=== PATIENT | male | born 1940 | race Caucasian/White ===

== ENCOUNTER 2022-11-07 09:19 | Emergency (ER) | payer MEDICARE, BC, SELFPAY ==
[2022-11-07 09:23] VITALS: BP 129/73; PULSE 64; RESP 20; TEMP 36.4; O2SAT 98; BMI 23.0
--- NOTE | 2022-11-07 09:48 | ED.GENADULT ---
HPI - General Adult General Time Seen by Provider: 09:48 Date Seen: 11/07/22 Chief complaint: Extremity Pain/Injury, Lower Stated complaint: gout / swelling Time Seen by Provider: 11/07/22 09:43 Source: patient, RN notes reviewed and old records reviewed Mode of arrival: ambulatory Limitations: no limitations History of Present Illness HPI narrative: Patient is an 82-year-old male coming in with complaint of ongoing left toe pain. His pain is actually at the left 1st metatarsophalangeal joint. He was in the ER on October 25, no reviewed. Uric acid was elevated, white count was normal, no fever. Diagnosis of probable gout and patient was given dexamethasone 10 mg orally here and then a prescription for Medrol Dosepak. He states he did improve. Waited about 3-4 days, followed up with his primary care provider Dr. Roberts. This joint was swelling again and more painful. No fevers, no trauma. He was started on prednisone, it is been about 3-4 days and there is no improvement, although he does tell me right now it is not feeling as bad. It is still hurting to walk. The swelling is down at this time. Related Data Home Medications Medication Instructions Recorded Confirmed betamethasone valerate 0.1 % 0.1 applic topical .Bid Mon, Wed, 12/13/21 11/07/22 topical cream Fri epinephrine 0.3 mg/0.3 mL 0.3 ml IM ONCE 12/13/21 11/07/22 injection, auto-injector rivaroxaban 20 mg tablet 20 mg PO DAILY 12/13/21 11/07/22 metoprolol succinate 25 mg 25 mg PO DAILY 11/04/22 11/07/22 tablet,extended release 24 hr Previous Rx's Medication Instructions Recorded prednisone 20 mg tablet 10 - 40 mg (0.5 - 2 x 20 mg) PO 11/04/22 QDAY #14 tabs Allergies Allergy/AdvReac Type Severity Reaction Status Date / Time venom-honey bee Allergy Mild Unknown Verified 11/04/22 10:08 HYMENOPTERA ALLERGENIC Allergy Unknown Unknown Uncoded 11/04/22 10:08 EXTRACT Review of Systems Narrative: As per HPI PFSH PFS Medical History Cerumen debris on tympanic membrane of right ear ?H61.21 - Impacted cerumen, right ear (ICD-10) Surgical History 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 - Presence of right artificial hip joint (ICD-10) History of right cataract extraction ?Z98.41 - Cataract extraction status, right eye (ICD-10) History of left cataract extraction ?Z98.42 - Cataract extraction status, left eye (ICD-10) History of hernia repair ?Z98.890 - Other specified postprocedural states (ICD-10) ?Z87.19 - Personal history of other diseases of the digestive system (ICD-10) History of hemorrhoidectomy ?Z98.890 - Other specified postprocedural states (ICD-10) Family History (Updated 12/06/21 @ 11:52 by Radha Caro) Father Heart disease Other Diabetes Social History Narrative: Consumes alcohol occasionally Does not use illicit drugs Nonsmoker Smoking Status: Former smoker Do you use any of these nicotine containing products: None Second hand tobacco smoke exposure: No How often do you have a drink containing alcohol: 2-3 times a week How many standard drinks containing alcohol do you have on a typical day: 1 or 2 How often do you have six or more drinks on one occasion: Never AUDIT-C Alcohol total score: 3 Non-prescribed substance use: denies use Exam Const: Vital Signs, click to edit/add: Vital Signs - 24 hr 11/07/22 09:23 Temperature 97.5 F L Pulse Rate [Pulse Oximeter] 64 Respiratory Rate 20 Blood Pressure [Ri ght Upper Arm] 129/73 Pulse Oximetry 98 Oxygen Delivery Me thod Room Air 82-year-old male that is alert interactive no apparent distress both feet are visualized. Skin is normal, no significant erythema. Specifically, he has no significant swelling or erythema or effusion over the left 1st metatarsophalangeal joint. Is not painful today. The joint itself does seem to be a little thicker, possibly arthritic in comparison to the right. He has not had x-rays done yet. Neurovascular is intact. Documenting provider has reviewed patient's vital signs: yes Course Course Hospital Course: Overall, his foot clinically looks quite stable as far as possible gouty arthritis. Do wonder if there is possibly underlying concomitant osteoarthritis. I do think we should proceed with imaging of this foot, he does agree. Reevaluation(s) Time of Reevaluation #1: 10:50 Reevaluation #1: Have reviewed with patient that there is significant arthritis of this joint. He most certainly could have had a gouty flare on top of osteoarthritis. It is possible that this was an osteoarthritis flare as well. It is impossible to say without having had fluid demonstrating crystals from the acute flare. Nonetheless, steroids make most people with joint arthritis feel better. I do think he can complete the current prednisone. He is on Xarelto which certainly limits the ability for NSAIDs. He can follow up with his primary care provider to discuss further treatment options for osteoarthritis of this joint. I would recommend a trial of baseline Tylenol to see if this does help him. He can see if he needs 1 dose a day but may end up needing up to 3 doses a day. Vital Signs Vital signs: Initial Vital Signs Temperature 97.5 F L 11/07/22 09:23 Temperature Source Temporal Artery Scan 11/07/22 09:23 Pulse Rate 64 11/07/22 09:23 Respiratory Rate 20 11/07/22 09:23 Blood Pressure 129/73 11/07/22 09:23 Blood Pressure Mean 91 11/07/22 09:23 Blood Pressure Position Sitting 11/07/22 09:23 Pulse Oximetry 98 11/07/22 09:23 Oxygen Delivery Method Room Air 11/07/22 09:23 Vital Signs Temperature 97.5 F L 11/07/22 09:23 Pulse Rate 64 11/07/22 09:23 Respiratory Rate 20 11/07/22 09:23 Blood Pressure 129/73 11/07/22 09:23 Pulse Oximetry 98 11/07/22 09:23 Oxygen Delivery Method Room Air 11/07/22 09:23 Temperature 97.5 F L 11/07/22 09:23 Pulse Rate 64 11/07/22 09:23 Respiratory Rate 20 11/07/22 09:23 Blood Pressure 129/73 11/07/22 09:23 Pulse Oximetry 98 11/07/22 09:23 Oxygen Delivery Method Room Air 11/07/22 09:23 Medical Decision Making Imaging Data XR left foot: Attestation: I have reviewed the pertinent imaging results. My impression: I see definite joint space narrowing of his 1st metatarsophalangeal joint. Await Radiology over-read. Radiologist's impression: Patient: CHRISTIAN CYR Facility:?[facility] Patient ID:?[id number] Site Patient ID:?[id number]. Site :?[id number] Study:?XRay Extremity Left FOOT 3V-11/07/2022 10:14:26 AM Ordering Physician:Marino Gonzales Final Report: INDICATION: Pain of the left 1st MTP joint. TECHNIQUE: Three views of the left foot. FINDINGS: Marked narrowing of the left 1st MTP joint with minor spurring and sclerosis. Minor soft tissue swelling. No soft tissue calcifications. No definite erosive arthritis. The examination is otherwise negative. IMPRESSION: Degenerative change left 1st MTP joint with soft tissue swelling. No erosive arthritis. 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 Can use 1000 mg up to 3 times a day as needed. Please get scheduled in clinic with Dr. Roberts for follow-up visit and further planning of management of osteoarthritis of this toe. It is still certainly is possible that there was concomitant gout and is impossible to tell you if there was at this time. Do recommend completing the prednisone that he gave you. No that arthritis in this area of the toe will hurt with walking and potentially even standing. Hopefully the Tylenol will help alleviate some of this discomfort as it is important for you to be able to continue to be active. Activity Level: Activity as Tolerated Prescriptions: No Action betamethasone valerate 0.1 % cream 0.1 applic topical .Bid Mon, Wed, Fri epinephrine 0.3 mg/0.3 mL auto-injector 0.3 ml IM ONCE rivaroxaban 20 mg tablet 20 mg PO DAILY Rx Instructions: WITH MEAL metoprolol succinate 25 mg tablet extended release 24 hr 25 mg PO DAILY prednisone 20 mg tablet 10 - 40 mg PO QDAY Qty: 14 0RF Rx Instructions: 2 QD x 4 days, 1 QD x 4 days, 1/2 QD x 4 days Follow Up/Referrals: Yolanda Garcia PA-C [Primary Care Provider] - Stand Alone Forms: [email or web address]) Info Instructions
--- NOTE | 2022-11-07 09:52 | CRLHL7_ITS ---
For Patients: As a result of the Cures Act, medical imaging exams and procedure reports are released immediately into your electronic medical record. You may view this report before your referring provider. If you have questions, please contact your health care provider. INDICATION: Pain of the left 1st MTP joint. TECHNIQUE: Three views of the left foot. FINDINGS: Marked narrowing of the left 1st MTP joint with minor spurring and sclerosis. Minor soft tissue swelling. No soft tissue calcifications. No definite erosive arthritis. The examination is otherwise negative. IMPRESSION: Degenerative change left 1st MTP joint with soft tissue swelling. No erosive arthritis. Dictated by Vamshi Luna MD @ 11/07/2022 10:26:43 AM (Electronically Signed)
== END 2022-11-07 11:02 | disposition home or self-care (01) ==
PROVIDERS: Emergency Provider Family Medicine; PCP Physician Assistant Medical
DX: M19.072 Primary osteoarthritis, left ankle and foot (principal)
CPT/HCPCS: 73630; 99282; 99283

== ENCOUNTER 2023-07-27 10:23 | Emergency (ER) | payer MEDICARE, BC, SELFPAY ==
[2023-07-27 10:27] VITALS: BP 169/84; PULSE 55; RESP 14; TEMP 35.7; O2SAT 99; BMI 23.0
--- NOTE | 2023-07-27 10:40 | ED.GENADULT ---
HPI - General Adult General Chief complaint: Ear/Nose/Throat Problem Stated complaint: wash wax out of ears? Time Seen by Provider: 07/27/23 10:31 History of Present Illness HPI narrative: Pt is here to have ear wax removed/washed in R ear due to it being plugged. Tried to go to clinic, but states no one had time to wash ear wax out. Has hx of ear wax removal from this ear. Denies pain 83-year-old man presenting to the emergency department with concern of plugged ears. Particularly the right ear. Has had ears irrigated in the past and is concerned that this might be the issue again. Was not able to find appointment or someone to help him at the clinic. Is not having any pain. No unusual drainage. No fever. No trauma. Related Data Home Medications Medication Instructions Recorded Confirmed epinephrine 0.3 mg/0.3 mL 0.3 ml IM ONCE 12/13/21 02/19/23 injection, auto-injector rivaroxaban 20 mg tablet 20 mg PO DAILY 12/13/21 02/19/23 metoprolol succinate 25 mg 25 mg PO DAILY 11/04/22 02/19/23 tablet,extended release 24 hr Previous Rx's Medication Instructions Recorded fluorouracil 5 % topical cream 1 applic topical .1DW #40 grams 01/08/23 (Efudex) betamethasone valerate 0.1 % 0.1 applic topical .Bid Mon, Thu, 02/19/23 topical cream Fri #45 grams Allergies Allergy/AdvReac Type Severity Reaction Status Date / Time venom-honey bee Allergy Mild Unknown Verified 02/19/23 09:17 HYMENOPTERA ALLERGENIC Allergy Unknown Unknown Uncoded 02/19/23 09:17 EXTRACT Review of Systems Status of ROS: Reports: 6 or more systems reviewed and unremarkable except as noted in History and below [facility] Medical History Gout ?M10.9 - Gout, unspecified (ICD-10) Retinal detachment ?H33.20 - Serous retinal detachment, unspecified eye (ICD-10) Gastroesophageal reflux disease ?K21.9 - Gastro-esophageal reflux disease without esophagitis (ICD-10) Diverticulitis ?K57.92 - Diverticulitis of intestine, part unspecified, without perforation or abscess without bleeding (ICD-10) Atrial fibrillation ?I48.91 - Unspecified atrial fibrillation (ICD-10) Surgical History 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 - Presence of right artificial hip joint (ICD-10) History of right cataract extraction ?Z98.41 - Cataract extraction status, right eye (ICD-10) History of left cataract extraction ?Z98.42 - Cataract extraction status, left eye (ICD-10) History of hernia repair ?Z98.890 - Other specified postprocedural states (ICD-10) ?Z87.19 - Personal history of other diseases of the digestive system (ICD-10) History of hemorrhoidectomy ?Z98.890 - Other specified postprocedural states (ICD-10) Family History Father Heart disease Other Diabetes Social History Narrative: Consumes alcohol occasionally Does not use illicit drugs Nonsmoker Smoking Status: Former smoker Do you use any of these nicotine containing products: None Second hand tobacco smoke exposure: No How often do you have a drink containing alcohol: 2-3 times a week How many standard drinks containing alcohol do you have on a typical day: 1 or 2 How often do you have six or more drinks on one occasion: Never AUDIT-C Alcohol total score: 3 Non-prescribed substance use: denies use Exam Narrative: Exam Narrative: Pleasant. NAD. Breathing easily. Neck is supple without lymphadenopathy. No swelling around the face. Oropharynx is WNL dentition in good repair. Left ear canal with minimal cerumen staining. Right ear canal with near complete occlusion with small to moderate amount of dried cerumen. TMs bilaterally are noted to be clear on reexamination. No nasopharyngeal congestion Const: Vital Signs, click to edit/add: Vital Signs - 24 hr 07/27/23 10:27 Temperature 96.2 F L Pulse Rate [Pulse Oximeter] 55 L Respiratory Rate 14 Blood Pressure [Ri ght Upper Arm] 169/84 H Pulse Oximetry 99 Oxygen Delivery Me thod Room Air Documenting provider has reviewed patient's vital signs: yes Course Vital Signs Vital signs: Initial Vital Signs Temperature 96.2 F L 07/27/23 10:27 Temperature Source Temporal Artery Scan 07/27/23 10:27 Pulse Rate 55 L 07/27/23 10:27 Pulse Rhythm Regular 07/27/23 10:27 Respiratory Rate 14 07/27/23 10:27 Blood Pressure 169/84 H 07/27/23 10:27 Blood Pressure Mean 112 H 07/27/23 10:27 Blood Pressure Position Sitting 07/27/23 10:27 Pulse Oximetry 99 07/27/23 10:27 Oxygen Delivery Method Room Air 07/27/23 10:27 Vital Signs Temperature 96.2 F L 07/27/23 10:27 Pulse Rate 55 L 07/27/23 10:27 Respiratory Rate 14 07/27/23 10:27 Blood Pressure 169/84 H 07/27/23 10:27 Pulse Oximetry 99 07/27/23 10:27 Oxygen Delivery Method Room Air 07/27/23 10:27 Temperature 96.2 F L 07/27/23 10:27 Pulse Rate 55 L 07/27/23 10:27 Respiratory Rate 14 07/27/23 10:27 Blood Pressure 169/84 H 07/27/23 10:27 Pulse Oximetry 99 07/27/23 10:27 Oxygen Delivery Method Room Air 07/27/23 10:27 Medical Decision Making MDM Narrative Medical decision making narrative: We discussed methods of removal. He would like what ever might be a little quicker. I think I can do pretty good job without irrigation here today just using ear curette. Using ear curette managed to remove the cerumen occluding the right ear canal from 4 o'clock to 1 o'clock position. He noted immediate improvement in his sensation of hearing and not feeling plugged. No inflammatory change to the ear canal. He asked me also then to remove some what was some trace amount in the left side. No inflammatory changes in the canal. TM normal. Mr. Rhoades was wondering how he can treat this in the future. See patient discharge plan for further discussion Discharge Plan Discharge Clinical Impression: Excessive cerumen in right ear canal Patient Disposition: Home, Self-Care Condition: Improved Additional Instructions: You might place Debrox or mineral oil into your ear once or twice a month. There is nothing left to clear out at this point. Prescriptions: No Action epinephrine 0.3 mg/0.3 mL auto-injector 0.3 ml IM ONCE rivaroxaban 20 mg tablet 20 mg PO DAILY Rx Instructions: WITH MEAL metoprolol succinate 25 mg tablet extended release 24 hr 25 mg PO DAILY betamethasone valerate 0.1 % cream 0.1 applic topical .Bid Mon, Wed, Fri Qty: 45 0RF fluorouracil [Efudex] 5 % cream 1 applic topical .1DW Qty: 40 0RF Rx Instructions: Apply to affected skin one day per week. Follow Up/Referrals: Allan Roberts MD [Primary Care Provider] - Stand Alone Forms: [facility] Info Instructions Procedures Ear Wax Removal Both Ears: Results: Re-examined: cerumen removed completely TM Examination: TM(s) intact, normal appearance Ear Canal Exam: atraumatic Patient Tolerated Procedure: well Technique: ear canal curetted
== END 2023-07-27 11:14 | disposition home or self-care (01) ==
PROVIDERS: Emergency Provider Family Medicine; PCP Family Medicine
DX: H61.21 Impacted cerumen, right ear (principal)
CPT/HCPCS: 69209; 99283; 99284

== ENCOUNTER 2023-08-18 10:31 | Outpatient (REF) | payer MEDICARE, BC, SELFPAY ==
[2023-08-18 10:50] LABS: Chloride* 102 mmol/L (96-114); Potassium* 4.3 mmol/L (3.6-5.1); Sodium* 139 mmol/L (135-149)
[2023-08-18 10:53] LABS: Anion Gap 6 mEq/L (7-15); Blood Urea Nitrogen* 21 mg/dL (7-30); Carbon Dioxide* 31 mmol/L (20-32); Creatinine* 1.1 mg/dL (0.5-1.5); Estimated Glomerular Filt Rate 66 ml/min
[2023-08-18 10:54] LABS: Calcium* 9.4 mg/dL (8.4-10.6); Glucose* 99 mg/dL (60-115)
== END 2023-08-18 10:32 | disposition home or self-care (01) ==
LOC: NPINS 10:31
PROVIDERS: PCP Family Medicine; Visit Provider Internal Medicine
DX: I10 Essential (primary) hypertension (principal)
CPT/HCPCS: 80048

== ENCOUNTER 2023-09-28 07:10 | Emergency (ER) | payer MEDICARE, BC, SELFPAY ==
[2023-09-28 07:33] VITALS: BP 147/97; PULSE 87; RESP 16; TEMP 36.7; O2SAT 97; BMI 23.7
--- NOTE | 2023-09-28 07:45 | ED_ITS ---
HPI - General Adult General Time Seen by Provider: 07:45 Date Seen: 09/28/23 Chief complaint: Hypertension Stated complaint: elevated blood pressure Source: patient, RN notes reviewed and old records reviewed Mode of arrival: ambulatory Limitations: no limitations History of Present Illness HPI narrative: 83-year-old male with history of high blood pressure, atrial fibrillation currently anticoagulated on Xarelto, also takes metoprolol who presents after checking his blood pressure at the pharmacy today and found to be with systolic 180. Patient has no chest pain, shortness of breath or neurologic symptoms. Took his blood pressure medication last night. Related Data Home Medications Medication Instructions Recorded Confirmed epinephrine 0.3 mg/0.3 mL 0.3 ml IM ONCE 12/13/21 08/20/23 injection, auto-injector rivaroxaban 20 mg tablet 20 mg PO DAILY 12/13/21 08/20/23 metoprolol succinate 25 mg 25 mg PO DAILY 11/04/22 08/20/23 tablet,extended release 24 hr Previous Rx's Medication Instructions Recorded fluorouracil 5 % topical cream 1 applic topical .1DW #40 grams 01/08/23 (Efudex) betamethasone valerate 0.1 % 0.1 applic topical .Bid Mon, Wed, 08/27/23 topical cream Fri #45 grams Allergies Allergy/AdvReac Type Severity Reaction Status Date / Time venom-honey bee Allergy Mild Unknown Verified 08/20/23 09:43 HYMENOPTERA ALLERGENIC Allergy Unknown Unknown Uncoded 08/20/23 09:43 EXTRACT PFSH PFSH Medical History Gout ?M10.9 - Gout, unspecified (ICD-10) Retinal detachment ?H33.20 - Serous retinal detachment, unspecified eye (ICD-10) Gastroesophageal reflux disease ?K21.9 - Gastro-esophageal reflux disease without esophagitis (ICD-10) Diverticulitis ?K57.92 - Diverticulitis of intestine, part unspecified, without perforation or abscess without bleeding (ICD-10) Atrial fibrillation ?I48.91 - Unspecified atrial fibrillation (ICD-10) Surgical History 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 - Presence of right artificial hip joint (ICD-10) History of right cataract extraction ?Z98.41 - Cataract extraction status, right eye (ICD-10) History of left cataract extraction ?Z98.42 - Cataract extraction status, left eye (ICD-10) History of hernia repair ?Z98.890 - Other specified postprocedural states (ICD-10) ?Z87.19 - Personal history of other diseases of the digestive system (ICD-10) History of hemorrhoidectomy ?Z98.890 - Other specified postprocedural states (ICD-10) Family History Father Heart disease Other Diabetes Social History Narrative: Consumes alcohol occasionally Does not use illicit drugs Nonsmoker Smoking Status: Former smoker Do you use any of these nicotine containing products: None Second hand tobacco smoke exposure: No How often do you have a drink containing alcohol: 2-3 times a week How many standard drinks containing alcohol do you have on a typical day: 1 or 2 How often do you have six or more drinks on one occasion: Never AUDIT-C Alcohol total score: 3 Non-prescribed substance use: denies use Exam Narrative: Exam Narrative: General: Well-developed and well-nourished, no acute distress Head: Atraumatic and normocephalic Eyes: Pupils are equal reactive, extraocular motions intact, conjunctiva clear ENT: External nose and ears are normal, posterior pharynx without erythema or exudate Neck: No midline cervical tenderness, full spontaneous range of motion the neck, trachea midline, no adenopathy Heart: Regular rate and rhythm no murmurs or thrills Lungs: Clear to auscultation bilaterally without wheezes or crackles Abdomen: Soft, nontender, nondistended with active bowel sounds Musculoskeletal: No tenderness, deformity, or edema Neurologic: Awake, alert, and oriented x3, no gross focal neurologic deficits, cranial nerves intact as tested Psych: Mood and affect are appropriate Skin: No rashes Const: Vital Signs, click to edit/add: Vital Signs - 24 hr 09/28/23 07:33 Temperature 98.0 F Pulse Rate [Left P ulse Oximeter] 87 Respiratory Rate 16 Blood Pressure [Ri ght Upper Arm] 147/97 H Pulse Oximetry 97 Oxygen Delivery Me thod Room Air Course Course ED Course: Patient seen and examined, presents today with elevated blood pressure reading at the pharmacy. On exam here, blood pressure is reasonably controlled with systolics in the 130-1 40s. Patient is asymptomatic, can follow up with primary care as an outpatient. Vital Signs Vital signs: Initial Vital Signs Temperature 98.0 F 09/28/23 07:33 Temperature Source Temporal Artery Scan 09/28/23 07:33 Pulse Rate 87 09/28/23 07:33 Pulse Rhythm Regular 09/28/23 07:33 Pulse Strength 3+ Normal 09/28/23 07:33 Respiratory Rate 16 09/28/23 07:33 Blood Pressure 147/97 H 09/28/23 07:33 Blood Pressure Mean 113 H 09/28/23 07:33 Blood Pressure Position Sitting 09/28/23 07:33 Pulse Oximetry 97 09/28/23 07:33 Oxygen Delivery Method Room Air 09/28/23 07:33 Vital Signs Temperature 98.0 F 09/28/23 07:33 Pulse Rate 87 09/28/23 07:33 Respiratory Rate 16 09/28/23 07:33 Blood Pressure 147/97 H 09/28/23 07:33 Pulse Oximetry 97 09/28/23 07:33 Oxygen Delivery Method Room Air 09/28/23 07:33 Temperature 98.0 F 09/28/23 07:33 Pulse Rate 87 09/28/23 07:33 Respiratory Rate 16 09/28/23 07:33 Blood Pressure 147/97 H 09/28/23 07:33 Pulse Oximetry 97 09/28/23 07:33 Oxygen Delivery Method Room Air 09/28/23 07:33 Discharge Plan Discharge Clinical Impression: Hypertension Patient Disposition: Home, Self-Care Condition: Stable Instructions: Chronic Hypertension (DC) Additional Instructions: Continue your current medication Follow-up with primary care Activity Level: No Restrictions Discharge Diet: Heart Healthy (2 gm sodium, low fat) Prescriptions: No Action epinephrine 0.3 mg/0.3 mL auto-injector 0.3 ml IM ONCE rivaroxaban 20 mg tablet 20 mg PO DAILY Rx Instructions: WITH MEAL metoprolol succinate 25 mg tablet extended release 24 hr 25 mg PO DAILY fluorouracil [Efudex] 5 % cream 1 applic topical .1DW Qty: 40 0RF Rx Instructions: Apply to affected skin one day per week. betamethasone valerate 0.1 % cream 0.1 applic topical .Bid Mon, Wed, Fri Qty: 45 0RF Follow Up/Referrals: Allan Roberts MD [Primary Care Provider] - Stand Alone Forms: [employer] Info Instructions
--- OUTSIDE RECORDS SUMMARY | 2023-09-28 07:57 | XMS_ITS | Clinical Summary ---
Author Name Unknown Organization [facility] Address [address] [place] [id number] Care Team Providers Care Box Blank Machine Operator Name Role Phone William Samayoa MD Primary Care Provider + Social History Tobacco Use Types Packs/Day Years Used Date Smoking Tobacco: Never Assessed Sex and Gender Information Value Date Recorded Sex Assigned at Not on file Gender Identity Not on file Sexual Orientation Not on file Plan of Treatment Not on file Care Teams Box Blank Machine Operator Relationship Specialty Start Date End Date William Samayoa MD PCP - General 06/10/17
--- OUTSIDE RECORDS SUMMARY | 2023-09-28 07:57 | XMS_ITS | Referral Summary ---
Author Name Unknown Organization [facility] Address [address] [place] [id number] Care Team Providers Care Enrichment Assistant Name Role Phone William Samayoa MD Primary Care Provider + Social History Tobacco Use Types Packs/Day Years Used Date Smoking Tobacco: Never Assessed Sex and Gender Information Value Date Recorded Sex Assigned at Not on file Gender Identity Not on file Sexual Orientation Not on file Plan of Treatment Not on file Care Teams Enrichment Assistant Relationship Specialty Start Date End Date William Samayoa MD PCP - General 06/10/17
--- OUTSIDE RECORDS SUMMARY | 2023-09-28 07:57 | XMS_ITS | Clinical Summary ---
Author Name Unknown Organization [facility] & [facility] Address [address] [address] Care Team Providers Care Wood Heel Attacher Name Role Phone Allan Rhoades MD Primary Care Provider Allergies Active Allergy Reactions Criticality Noted Date Comments Hymenoptera Allergenic Extract High 06/19/2008 bee sting -passed out /now has EPI pen Unlisted Allergen (Include Detail In Comments) 06/19/2008 seasonal Medications Medication Sig Dispensed Refills Start Date End Date Status EPIPEN 0.3 MG/0.3 ML (1:1,000) IM INJECTOR as directed Ac tive multivitamin (MVI) tablet Take 1 tablet by mouth once daily. 0 12/10/2018 Active vitamins A,C,R-clsc-uajwar (ICaps AREDS) 7,160-113-100 lmbm-ab-ndmd TbEC Take by mouth once daily. 0 12/11/2021 Active metoprolol succinate (TOPROL XL) 25 mg Sustained-Release tabletIndications:Chr onic atrial fibrillation (HC) Take 1 Tablet (25 mg) by mouth once daily. 90 Tablet 3 01/16/2023 Active rivaroxaban (Xarelto) 20 mg tabletIndications:Atr ial fibrillation, unspecified type (HC) Take 1 Tablet (20 mg) by mouth once daily with evening meal. 90 Tablet 3 01/16/2023 Active apixaban (Eliquis) 5 mg tabletIndications:Atr ial fibrillation, unspecified type (HC) Take 1 Tablet (5 mg) by mouth two times daily. 180 Tablet 3 08/10/2023 Active Encounters Date Type Department Care Team Description 08/19/[address] [place] [address] Garth Macdonald MD Questions 08/19/[address] [place] [address] Garth Macdonald MD Results (/) 08/18/2023 Orders Only [facility] [place] [address] [facility] [address] [place] [address] Harshad Leach 1 scan: (1-Ord) [facility] REPORT - 08/18/2023 07/27/2023 Telephone [facility] [address] [facility] [address] [place] [address] Garth Macdonald MD Medication Management (Xarelto Coverage) from Last 3 Months Social History Tobacco Use Types Packs/Day Years Used Date Smoking Tobacco: Never Smokeless Tobacco: Never Tobacco Cessation:Counseling Given: Yes Alcohol Use Standard Drinks/Week Comments Yes 0 (1 standard drink = 0.6 oz pur e alcohol) Social Connections Answer Date Recorded Frequency of Communication with Friends and Fami ly Not on file 05/18/2021 Financial Resource Strain Answer Date R ecorded Difficulty of Paying Living Expenses Not on file 05/18/2021 Difficulty of Paying Living Expenses Not on file 05/18/2021 Sex and Gender Information Value Date Recorded Sex Assigned at Not on file Gender Identity Not on file Sexual Orientation Not on file Obstetrics History Last Filed Vital Signs Vital Sign Reading Time Taken Comments Blood Pressure 118/72 12/13/2021 1:52 PM CDT Pulse 72 12/13/2021 1:52 PM CDT Temperature 35.9 ??C (96.6 ??F) 06/20/2008 1:05 PM CS T Respiratory Rate 14 12/13/2021 1:52 PM CDT Oxygen Saturation 99% 11/22/2019 9:45 AM CDT Inhaled Oxygen Concentration - - Weight 76.7 kg (169 lb) 12/13/2021 1:52 PM CDT Height 177.8 cm (5' 10) 06/19/2008 10:00 AM 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 SECURITY Body Mass Index - - Plan of Treatment Health Maintenance Due Date Last Done Comments Pneumococcal series for age 65+ (1 of 2 - PCV) 1945 Tdap 1950 Depression screening for age 12+ 1951 BMI (ht and wt on same day) for age 18+ 1957 Tetanus booster 1959 Zoster (shingles) series for age 50+ (1 of 2) 1989 Medicare Wellness for age 65+ 01/31/2004 COVID-19 vaccine series (3 - 2022- season) 2023 07/14/2020, 06/23/2020 Influenza for age 65+ 01/17/2024 Procedures Procedure Name Priority Date/Time Associated Diagnosis Comments BASIC METABOLIC PANEL Routine 08/18/2023 9:05 AM CDT HTN (hypertension) from Last 3 Months Results * (ABNORMAL) BASIC METABOLIC PANEL (08/18/2023 9:05 AM CDT) SODIUM 139 135 - 149 mmol/L [facility] POTASSIUM 4.3 3.6 - 5.1 mmol/L [facility] CHLORIDE 102 96 - 114 mmol/L [facility] CO2,TOTAL 31 20 - 32 mmol/L [facility] ANION GAP 6(A) 7 - 15 mEq/L [facility] GLUCOSE 99 60 - 115 mg/dL [facility] BUN 21 7 - 30 mg/dL [facility] CREATININE 1.10 0.50 - 1.50 mg/dL [facility] BUN/CREAT [facility] CALCIUM 9.4 8.4 - 10.6 mg/dL [facility] eGFR 66 mL/min [facility] Blood BLOOD SPECIMEN / Unknown 08/18/2023 9:05 AM CDT Garth Macdonald MD CHEMISTRY [facility] [address] [place] [address] from Last 3 Months Advance Directives * Full Code (Latest Code Status on File) Date Activated Date Inactivated Comments 06/20/2008 10:28 AM 06/20/2008 4:53 PM Care Teams Wood Heel Attacher Relationship Specialty Start Date End Date Allan Rhoades MD PCP - General 06/02/08
== END 2023-09-28 08:02 | disposition home or self-care (01) ==
PROVIDERS: Emergency Provider Family Medicine; PCP Family Medicine
DX: I10 Essential (primary) hypertension (principal)
CPT/HCPCS: 99282; 99283

== ENCOUNTER 2023-11-18 09:37 | Outpatient (CLI) | payer MEDICARE, BC, SELFPAY ==
--- OUTSIDE RECORDS SUMMARY | 2023-11-18 09:40 | XMS_ITS | Clinical Summary ---
Author Organization [employer] [facility] & [facility] Address [place], [place] [address] Care Team Providers Care Vice Investigator Name Role Phone Allan Rhoades MD Primary Care Provider [phone] Allergies Active Allergy Reactions Criticality Noted Date [...] mouth once daily. 0 12/10/2018 Active vitamins A,C,V-bhuo-sxbotr (ICaps AREDS) 7,160-113-100 bdub-cj-admh TbEC Take by mouth once daily. 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 [address] [place] [address] Health Maintenance Due Date Last Done Comments Pneumococcal series for age 65+ (1 of 2 - PCV) 1945 Tdap 1950 Depression screening for age 12+ 1951 BMI (ht and wt on same day) for age 18+ 1957 Tetanus booster 1959 Zoster (shingles) series for age 50+ (1 of 2) 1989 Medicare Wellness for age 65+ 01/31/2004 COVID-19 vaccine series (3 - 2022-24 season) 2023 07/14/2020, 06/23/2020 Influenza for age 65+ 01/17/2024 Advance Directives * Full Code (Latest Code Status on File) Date Activated Date Inactivated Comments 06/20/2008 10:28 AM 06/20/2008 4:53 PM Care Teams Vice Investigator Relationship Specialty Start Date End Date Allan Rhoades MD PCP - General 06/02/08
--- OUTSIDE RECORDS SUMMARY | 2023-11-18 09:40 | XMS_ITS | Clinical Summary ---
Author Organization [facility] Address [address] [place] [id number] Care Team Providers Care Client Development Director Name Role Phone William Samayoa MD Primary Care Provider + Social History Tobacco Use Types Packs/Day Years Used Date Smoking Tobacco: Never Assessed Sex and Gender Information Value Date Recorded Sex Assigned at Not on file Gender Identity Not on file Sexual Orientation Not on file Plan of Treatment Not on file Care Teams Client Development Director Relationship Specialty Start Date End Date William Samayoa MD PCP - General 06/10/17
--- OUTSIDE RECORDS SUMMARY | 2023-11-18 09:40 | XMS_ITS | Referral Summary ---
Author Organization [place] Address [address] [place] [address] Care Team Providers Care Liquor Merchant Name Role Phone William Samayoa MD Primary Care Provider + Social History Tobacco Use Types Packs/Day Years Used Date Smoking Tobacco: Never Assessed Sex and Gender Information Value Date Recorded Sex Assigned at Not on file Gender Identity Not on file Sexual Orientation Not on file Plan of Treatment Not on file Care Teams Liquor Merchant Relationship Specialty Start Date End Date William Samayoa MD PCP - General 06/10/17
== END 2023-11-18 09:38 | disposition home or self-care (01) ==
LOC: RAD 09:38
PROVIDERS: PCP Family Medicine; Visit Provider Internal Medicine
DX: I48.91 Unspecified atrial fibrillation (principal); I51.7 Cardiomegaly; I35.1 Nonrheumatic aortic (valve) insufficiency; I34.0 Nonrheumatic mitral (valve) insufficiency
CPT/HCPCS: 93306

== ENCOUNTER 2023-12-17 06:08 | Day surgery (SDC) | payer MEDICARE, BC, SELFPAY ==
[2023-12-17] VITALS (13 sets, daily range): BP systolic 147–169; BP diastolic 89–124; PULSE 55–71; RESP 12–16; TEMP 36.1–36.6; O2SAT 96–100; BMI 26.4
--- OUTSIDE RECORDS SUMMARY | 2023-12-17 06:11 | XMS_ITS | Clinical Summary ---
Author Organization [employer] [facility] & [facility] Address [place], [place] [address] Care Team Providers Care Automotive Service Cashier Name Role Phone Allan Rhoades MD Primary Care Provider [phone] Allergies Active Allergy Reactions Criticality Noted Date [...] mouth once daily. 0 12/10/2018 Active vitamins A,C,I-ujfm-cqlpcb (ICaps AREDS) 7,160-113-100 smwu-xk-bati TbEC Take by mouth once daily. 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 Body Mass Index - - Plan of Treatment Upcoming Encounters Date Type Department Care Team (Late st Contact Info) Description 12/17/2023 2:30 PM CDT Office Visit [facility] [address] [place] [address] Agueda Rivas MD [address] [facility] [address] [place] [address] Health Maintenance Due Date Last Done Comments Pneumococcal series for age 65+ (1 of 2 - PCV) 1945 Tdap 1950 Depression screening for age 12+ 1951 BMI (ht and wt on same day) for age 18+ 1957 Tetanus booster 1959 Zoster (shingles) series for age 50+ (1 of 2) 1989 Medicare Wellness for age 65+ 01/31/2004 COVID-19 vaccine series ( season) 2023 07/14/2020, 06/23/2020 Influenza for age 65+ 01/17/2024 Procedures Procedure Name Priority Date/Time Associated Diagnosis Comments ECHO TTE COMPLETE WO CONTRAST Routine 11/18/2023 10:43 AM CDT Unspecified atrial fibrillation (HC) from Last 3 Months Results * ECHO TTE COMPLETE WO CONTRAST (11/18/2023 10:43 AM CDT) AORTIC VALVE MEAN PG 3 mmHg EJECTION FRACTION 58 % PEAK TR VELOCITY 2.6 m/s LVEDD 3.8 cm Anatomical Region Laterality Modality Ultrasound 11/18/2023 10:0 7 AM CDT Narrative 11/18/2023 12:45 PM CDT ECHOCARDIOGRAM CHRISTIAN RHOADES ? Accession#: ?? [id number] : ?1940 83 years Study Date: ?? 11/18/2023 10:07:28 AM Gender: M ?BP: ? 150/88 mmHg Height: 178.00 cm ?BSA: ?1.93 m? ? ? Weight: 75.00 kg ? Tech: ? MJJ ? Referring MD: AGUEDA RIVAS Site: ? [facility] Reading Location: MOBILE-OP Patient Location: Outpatient. Procedure: 2D, Color Doppler and Spectral Doppler. Indication for study: Unspecified atrial fibrillation Cardiac Rhythm: Irregular.Study quality: Fair. Final Impressions: 1. Normal left ventricular size, moderately increased wall thickness, normal global systolic function, calculated EF of 58 %. 2. Moderate asymmetric septal hypertrophy without systolic anterior motion of the mitral valve or LVOT obstruction. 3. Right ventricular cavity size is normal, global systolic RV function is normal. 4. Moderately enlarged left atrium. 5. The aortic valve is trileaflet and sclerotic, no stenosis and mild regurgitation. 6. The mitral valve is sclerotic, mild mitral regurgitation. 7. Intermediate estimated RA (8 mmHg) and mildly elevated estimated RV systolic (35 mmHg) pressures. 8. No pericardial effusion. Comparison Compared to prior exam of 06/08/2017, there has been no significant change. Chamber Sizes and Function Normal left ventricular size, moderately increased wall thickness, normal global systolic function, calculated EF of 58 %. Left atrial size is moderately enlarged. Right ventricular cavity size is normal, global systolic RV function is normal. RV wall thickness is normal. The right atrium is moderately enlarged. Right atrial area is 28 cm? ? ?. The pulmonary artery is of normal size and origin. The sinus of Valsalva is normal sized. The ascending aorta is normal sized. Valves, RV Pressures and Diastolic Function The aortic valve is trileaflet and sclerotic, no stenosis and mild regurgitation. The mitral valve is sclerotic, mild mitral regurgitation. Mitral annular calcification is present. Indeterminate pattern of LV diastolic filling. The tricuspid valve is normal in structure. Tricuspid regurgitation is mild regurgitation. The tricuspid regurgitant velocity is 2.6 m/s, the estimated right ventricular systolic pressure is 27 mmHg plus right atrial pressure. The pulmonic valve is normal. Mild pulmonary regurgitation. Masses, Effusion, Shunts There is no pericardial effusion. The inferior vena cava is dilated, respiratory size variation greater than 50%. No left to right shunting was detected by limited color flow Doppler interrogation of the interatrial septum. MEASUREMENTS AND CALCULATIONS 2-D Measurements and LV Function: LVID (d) 3.8 cm Planimetered EF 58 % LVID (s) 3.0 cm LV FS% (2D) ? 21 % IVS (d) ??1.4 cm LVOT diameter ?? 2.0 cm LVPW (d) 1.0 cm HR ?59 bpm Ao Sinus 3.6 cm LA Vol index ?45 ml/m2 Asc Ao ?? 3.6 cm RA area ? 28 cm? ? ? LA ? 4.8 cm Diastology: Mitral ?Tissue Doppler ?Pulmonary veins E Peak 0.8 m/s ??e', Septum ? 0.05 m/s Pulm s ?20.4 cm/s DT ? 174 msec e', Lateral ?0.09 m/s Pulm d ?59.7 cm/s ?E/e' Average ?? 11.96 ?Pulm s/d ratio ??0.34 Aortic Valve: Vmax ? 1.2 m/s ??KOFFI (V) ?? 1.50 cm? AI P 1/2 975 msec VTI ?0.23 m ?? KOFFI (I) ?? 1.50 cm? ? ? LVOT V max 0.6 m/s ??Max PG ?6 mmHg LVOT VTI ?? 0.12 m ?? Mean PG ?? 3 mmHg SV ? 35 ml ?Dim Index 0.50 SV index ?? 18 ml/m? ? ? CO ?2.1 l/min ?CI ?1.1 l/min/m? ? ? Mitral Valve: MVA ? 4.4 cm? ? ? MV P 1/2 ??50 msec MV Mean G 1 mmHg MV VTI ?0.28 m Tricuspid Valve and estimated PA pressures: TR Vmax 2.6 m/s TAPSE 1.4 cm TR maxG 27 mmHg Pulmonic Valve: PIEDV 1.2 m/s . This study was interpreted by an [facility] accredited facility. CC: [facility] (med records) [facility]. ??Final ?? Procedure Note Harshad Thomas MD - 11/18/2023 ECHOCARDIOGRAM CHRISTIAN RHOADES : 1940 83 years Study Date: 11/18/2023 10:07:28 AM Gender: M BP: 150/88 mmHg Height: 178.00 cm BSA: 1.93 m? ? ? Weight: 75.00 kg Tech: GARO Referring MD: AGUEDA RIVAS Site: [facility] Reading Location: MOBILE-OP Patient Location: Outpatient. Procedure: 2D, Color Doppler and Spectral Doppler. Indication for study: Unspecified atrial fibrillation Cardiac Rhythm: Irregular.Study quality: Fair. Final Impressions: 1. Normal left ventricular size, moderately increased wall thickness,normal global systolic function, calculated EF of 58 %. 2. Moderate asymmetric septal hypertrophy without systolic anteriormotion of the mitral valve or LVOT obstruction. 3. Right ventricular cavity size is normal, global systolic RV functionis normal. 4. Moderately enlarged left atrium. 5. The aortic valve is trileaflet and sclerotic, no stenosis and mildregurgitation. 6. The mitral valve is sclerotic, mild mitral regurgitation. 7. Intermediate estimated RA (8 mmHg) and mildly elevated estimated RVsystolic (35 mmHg) pressures. 8. No pericardial effusion. Comparison Compared to prior exam of 06/08/2017, there has been no significantchange. Chamber Sizes and Function Normal left ventricular size, moderately increased wall thickness, normalglobal systolic function, calculated EF of 58 %. Left atrial size ismoderately enlarged. Right ventricular cavity size is normal, globalsystolic RV function is normal. RV wall thickness is normal. The rightatrium is moderately enlarged. Right atrial area is 28 cm? ? ?. The pulmonaryartery is of normal size and origin. The sinus of Valsalva is normalsized. The ascending aorta is normal sized. Valves, RV Pressures and Diastolic Function The aortic valve is trileaflet and sclerotic, no stenosis and mildregurgitation. The mitral valve is sclerotic, mild mitral regurgitation.Mitral annular calcification is present. Indeterminate pattern of LVdiastolic filling. The tricuspid valve is normal in structure. Tricuspidregurgitation is mild regurgitation. The tricuspid regurgitant velocity is2.6 m/s, the estimated right ventricular systolic pressure is 27 mmHg plusright atrial pressure. The pulmonic valve is normal. Mild pulmonaryregurgitation. Masses, Effusion, Shunts There is no pericardial effusion. The inferior vena cava is dilated,respiratory size variation greater than 50%. No left to right shunting wasdetected by limited color flow Doppler interrogation of the interatrialseptum. MEASUREMENTS AND CALCULATIONS 2-D Measurements and LV Function: LVID (d) 3.8 cm Planimetered EF 58 % LVID (s) 3.0 cm LV FS% (2D) 21 % IVS (d) 1.4 cm LVOT diameter 2.0 cm LVPW (d) 1.0 cm HR 59 bpm Ao Sinus 3.6 cm LA Vol index 45 ml/m2 Asc Ao 3.6 cm RA area 28 cm? ? ? LA 4.8 cm Diastology: Mitral Tissue Doppler Pulmonary veins E Peak 0.8 m/s e', Septum 0.05 m/s Pulm s 20.4 cm/s DT 174 msec e', Lateral 0.09 m/s Pulm d 59.7 cm/s E/e' Average 11.96 Pulm s/d ratio 0.34 Aortic Valve: Vmax 1.2 m/s KOFFI (V) 1.50 cm? ? ? AI P 1/2 975 msec VTI 0.23 m KOFFI (I) 1.50 cm? ? ? LVOT V max 0.6 m/s Max PG 6 mmHg LVOT VTI 0.12 m Mean PG 3 mmHg SV 35 ml Dim Index 0.50 SV index 18 ml/m? ? ? CO 2.1 l/min CI 1.1 l/min/m? ? ? Mitral Valve: MVA 4.4 cm? ? ? MV P 1/2 50 msec MV Mean G 1 mmHg MV VTI 0.28 m Tricuspid Valve and estimated PA pressures: TR Vmax 2.6 m/s TAPSE 1.4 cm TR maxG 27 mmHg Pulmonic Valve: PIEDV 1.2 m/s . This study was interpreted by an [facility] accredited facility. CC: [facility] (med records) [facility]. Final Agueda Rivas MD ECHO ORD from Last 3 Months Advance Directives * Full Code (Latest Code Status on File) Date Activated Date Inactivated Comments 06/20/2008 10:28 AM 06/20/2008 4:53 PM Care Teams Automotive Service Cashier Relationship Specialty Start Date End Date Allan Rhoades MD PCP - General 06/02/08
--- OUTSIDE RECORDS SUMMARY | 2023-12-17 06:11 | XMS_ITS | Referral Summary ---
Author Organization [place] Address [address] [place] [address] Care Team Providers Care Customer Care Professional Name Role Phone William Samayoa MD Primary Care Provider + Social History Tobacco Use Types Packs/Day Years Used Date Smoking Tobacco: Never Assessed Sex and Gender Information Value Date Recorded Sex Assigned at Not on file Gender Identity Not on file Sexual Orientation Not on file Plan of Treatment Not on file Care Teams Customer Care Professional Relationship Specialty Start Date End Date William Samayoa MD PCP - General 06/10/17
--- OUTSIDE RECORDS SUMMARY | 2023-12-17 06:11 | XMS_ITS | Clinical Summary ---
Author Organization [facility] Address [address] [place] [address] Care Team Providers Care Client Services Specialist Name Role Phone William Samayoa MD Primary Care Provider + Social History Tobacco Use Types Packs/Day Years Used Date Smoking Tobacco: Never Assessed Sex and Gender Information Value Date Recorded Sex Assigned at Not on file Gender Identity Not on file Sexual Orientation Not on file Plan of Treatment Not on file Care Teams Client Services Specialist Relationship Specialty Start Date End Date William Samayoa MD PCP - General 06/10/17
[2023-12-17] MEDS: SODIUM CHLORIDE 0.9 % (FLUSH) 10 ML SYRINGE IVF (06:35)
[2023-12-17] MEDS: LACTATED RINGERS 1000 ML 1,000 ML 100 ML IV (06:35)
--- NOTE | 2023-12-17 07:31 | W.PM.H&PU ---
History & Physical Update History & Physical Update H&P Reviewed and patient assessed: No changes noted H&P Updates: Patient has held his rivaroxaban for 3 days.
--- NOTE | 2023-12-17 07:31 | PM.GSPRC ---
Operative Note Date of procedure: 12/17/23 Pre-op diagnosis: Recurrent incarcerated left inguinal hernia Post-op diagnosis: Same Type of Procedure: Laparoscopic converted to open repair of recurrent incarcerated left inguinal hernia Indications: The patient is an 83-year-old male who several weeks ago noted a bulge in his groin. He had an non reducible mass. He had a history of a left inguinal hernia repair in the past. This was done open and mesh was used. We discussed laparoscopic repair and he was agreeable to proceed. Procedure Description: After discussing the risks and benefits of the procedure, the patient signed informed consent.? The operative site was marked and the patient was brought to the operating room and placed on the operating table in supine position.? Care was taken to pad the patient's pressure points.?? The patient was then intubated by anesthesia.?? The operative site was then prepped and draped in the usual sterile fashion.? A time-out was then performed. A curvilinear incision was made below the umbilicus. Dissection was carried down to subcutaneous tissue until the anterior rectus fascia was encountered. This was incised off the midline. The rectus muscle fibers were then retracted exposing the posterior fascia. A port with a dissecting balloon was then introduced into the pre-preperitoneal space. This was inflated under direct vision. The balloon was deflated, removed, and a 10 mm working port was placed. The space was insufflated and a 10 mm 30-degree scope was then advanced into the space. Two 5 mm ports were placed in the midline under direct vision. Dissection began on the left side. Link's ligament and the pubic bone were exposed medially. Following this, dissection was carried out laterally. There was fat densely adherent to the anterior abdominal wall in the location of a direct hernia. This was attempted to peel down. As I peeled it away I noted a mesh plug which was protruding quite far into the peritoneal cavity. The preperitoneal fat was densely adherent to this and bled easily as I tried to dissect it away. I decided to turned my attention to the indirect defect. The sac was attempted to be reduced. It was again densely adherent to the internal ring. The sac did tear. I was able to reduce a small amount of omentum. I continued to dissect the sac from around the internal ring opening and with pressure from the outside, continue to attempt to reduce the sac. However, the hernia would not reduce. The sac continued to tear. There did not appear to be bowel contained within the hernia. After continuing to attempt to reduce the hernia with external pressure as well as dissecting the sac and pulling it intra-abdominally, I decided to proceed with an open repair, because of inability to reduce the hernia and also because the mesh plug which was located medially would have interfered with the mesh patch laying flat along the anterior pelvic wall. The abdomen was desufflated and an incision was made over the left groin. This was done through the patient's prior scar. Dissection was carried down into the subcutaneous tissue using cautery. There was a fair amount of scar tissue here. The external oblique fascia was encountered. This was cleared off. The external ring was identified and the external oblique was incised using a knife. This was extended using the Metzenbaum scissors with care to dissect the underlying cord structures away from the fascia before cutting. This area was very scarred. The ileal inguinal nerve was not visualized here. The large hernia popped into view and was free from the cord structures. This was coming from the internal ring. The hernia sac was torn and it was found to contain omental fat. This was dissected through an ligated and divided. The omental fat was discarded. The cord structures were looped with a Brian drain and the base of the hernia sac was dissected away. This was then ligated and divided. The proximal and was reduced into the abdomen. The hernia opening was very small, only approximately the size of a fingertip. The inguinal canal floor was examined. Mesh was not visible, however it was palpable below the scar tissue in the inguinal floor. I was able to visualize the landmarks in this area for mesh placement after using cautery to carefully further dissect the external oblique from the underlying tissue which it was scarred down to. A piece of polypropylene mesh was obtained and cut to size. This was secured to the pubic tubercle using to 0 Prolene on a double-armed suture. The Prolene was run along the inguinal ligament inferiorly and along the transversalis fascia superiorly, securing the tails around the cord and re-creating the internal ring. The ring was secured slightly smaller than a fingertip, given that the patient had recurred through a small defect, but without strangulating the cord structures. The wound was examined for hemostasis which was found to be adequate. The external oblique fascia was then reapproximated with absorbable suture. I then re-insufflated the intra-abdominal space to ensure hemostasis. This appeared excellent. A mix of Exparel and 0.5% Marcaine were then injected into the preperitoneal space. This was also injected into the transversalis and subcutaneous around the left groin incision. Marcaine was injected into the umbilical port site. The left groin wound was then closed in layers including Hope's fascia and the dermis with absorbable suture. The skin was then closed with a running subcuticular suture. The port sites were also closed using absorbable Monocryl suture. Sterile dressings were applied. Instrument, sponge, and needle counts were correct at the end of the case. The patient was woken and taken to the PACU in stable condition. Instrument sponge and needle counts were correct at the end of the case. ? The patient tolerated the procedure well. Findings: Recurrent left inguinal hernia which was incarcerated. Unable to use laparoscopically; mesh plug noted from prior repair in the preperitoneal space. Implants: Bard soft mesh Anesthesia: GETA Surgeon: Dee Guaman MD Estimated blood loss (mL): 10 Condition: stable Disposition: PACU
[2023-12-17] MEDS: CEFAZOLIN 1 GM inj IVP (07:46)
[2023-12-17] MEDS: BUPIVACAINE 0.25% 30 ML INJECTION (08:13)
[2023-12-17] MEDS: BUPIVACAINE LIPOSOME 133 MG/10 ML INJ INFILTRATI (09:15)
--- NOTE | 2023-12-17 09:22 | SUR.OPER ---
PATIENT QUESTIONS ANSWERED SATISFACTORILY PREOPERATIVELY. PATIENT BROUGHT TO OR #1 PER CART. Patient positioned supine on OR #1 bed. The perioperative team supported arms bilaterally on arm boards for the intubation. Final approval of positioning by surgeon.
--- NOTE | 2023-12-17 09:26 | SUR.OPER ---
SURGEON DECLINES OFFER TO SEND EXCISED TISSUE TO PATHOLOGY.
--- NOTE | 2023-12-17 09:41 | P.ANES_ITS ---
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
== END 2023-12-17 11:37 | disposition home or self-care (01) ==
PROVIDERS: PCP Family Medicine; Visit Provider Surgery
PROC: (CPT 49650; principal; 2023-12-17 07:30)
DX: K40.31 Unilateral inguinal hernia, with obstruction, without gangrene, recurrent (principal); Z53.31 Laparoscopic surgical procedure converted to open procedure
CPT/HCPCS: 49521; 00830; 99100; C1781; C9290; J0665; J0690; J1100; J2405; J2704; J3010; J3490; J7120

== ENCOUNTER 2023-12-19 22:16 | Emergency (ER) | payer MEDICARE, BC, SELFPAY ==
[2023-12-19 22:27] VITALS: BP 151/102; PULSE 58; RESP 20; TEMP 36.7; O2SAT 98; BMI 23.7
--- NOTE | 2023-12-19 22:41 | ED_ITS ---
HPI - General Adult General Time Seen by Provider: 22:41 Date Seen: 12/19/23 Chief complaint: Post Op Complication Stated complaint: post op; blood in stool Time Seen by Provider: 12/19/23 22:41 Source: patient and RN notes reviewed Mode of arrival: ambulatory Limitations: no limitations History of Present Illness HPI narrative: This 83-year-old male is coming into the ER with concern of blood noted in his stool. He had a left inguinal hernia repair recently here with Dr. Guaman. He was having difficulty stooling, states he did not take any narcotics as he had drive. He really feels like the pain is minimal from this surgery. He took two 5 mg docusate tablets this morning, he finally had stool production this evening. He states it was not difficult to go, had a large stool and then had a little liquid stool and then at the very and states he felt like there was maybe a little bit of blood. There was no pain. He is on Xarelto for atrial fibrillation, took his 1st pill today. He states he has never had a colonoscopy. He is not noting any hemorrhoids, has not had any further bleeding. No abdominal pain. Related Data Home Medications ?Medication ?Instructions ?Recorded ?Confirmed epinephrine 0.3 mg/0.3 mL 0.3 ml IM ONCE 12/13/21 12/17/23 injection, auto-injector rivaroxaban 20 mg tablet 20 mg PO DAILY 12/13/21 12/17/23 metoprolol succinate 25 mg 25 mg PO DAILY 11/04/22 12/17/23 tablet,extended release 24 hr Previous Rx's ?Medication ?Instructions ?Recorded fluorouracil 5 % topical cream 1 applic topical .1DW #40 grams 01/08/23 (Efudex) betamethasone valerate 0.1 % 0.1 applic topical .Bid Mon, Wed, 08/27/23 topical cream Fri #45 grams hydrocodone 5 mg-acetaminophen 325 1 tab PO Q6H PRN Pain #10 tabs 12/17/23 mg tablet Allergies Allergy/AdvReac Type Severity Reaction Status Date / Time venom-honey bee Allergy Mild Unknown Verified 12/17/23 06:42 HYMENOPTERA ALLERGENIC Allergy Unknown Unknown Uncoded 12/03/23 12:57 EXTRACT Review of Systems Status of ROS: Reports: 6 or more systems reviewed and unremarkable except as noted in History and below PFSH FORMERLY [facility], 1928–1983 Medical History Gout ?M10.9 - Gout, unspecified (ICD-10) Retinal detachment ?H33.20 - Serous retinal detachment, unspecified eye (ICD-10) Gastroesophageal reflux disease ?K21.9 - Gastro-esophageal reflux disease without esophagitis (ICD-10) Diverticulitis ?K57.92 - Diverticulitis of intestine, part unspecified, without perforation or abscess without bleeding (ICD-10) Atrial fibrillation ?I48.91 - Unspecified atrial fibrillation (ICD-10) Surgical History 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 - Presence of right artificial hip joint (ICD-10) History of right cataract extraction ?Z98.41 - Cataract extraction status, right eye (ICD-10) History of left cataract extraction ?Z98.42 - Cataract extraction status, left eye (ICD-10) History of hernia repair ?Z98.890 - Other specified postprocedural states (ICD-10) ?Z87.19 - Personal history of other diseases of the digestive system (ICD-10) History of hemorrhoidectomy ?Z98.890 - Other specified postprocedural states (ICD-10) Family History Father Heart disease Other Diabetes Social History Narrative: Consumes alcohol occasionally Does not use illicit drugs 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 Lives with his Smoking Status: Former smoker Do you use any of these nicotine containing products: None Second hand tobacco smoke exposure: No How often do you have a drink containing alcohol: 2-3 times a week How many standard drinks containing alcohol do you have on a typical day: 1 or 2 How often do you have six or more drinks on one occasion: Never AUDIT-C Alcohol total score: 3 Non-prescribed substance use: denies use Caffeine: Yes Little interest or pleasure in doing things: not at all Feeling down, depressed, or hopeless: not at all service: No Exam Const: Vital Signs, click to edit/add: Vital Signs - 24 hr 12/19/23 22:27 Temperature 98.1 F Pulse Rate [Left P ulse Oximeter] 58 L Respiratory Rate 20 Blood Pressure [Ri ght Upper Arm] 151/102 H Pulse Oximetry 98 Oxygen Delivery Me thod Room Air This 83-year-old male is alert, interactive, no apparent distress. Able to speak in complete sentences, ambulatory into the ED of his own accord. Sclera clear, conjugate gaze. Lungs are clear, good air entry, no wheezing or crackles. Heart rate does sound irregular but not fast, do not hear any murmur. Abdomen is soft, nontender, nondistended, no organomegaly or masses. His left inguinal incision has some mild ecchymosis around it but the wound looks to be clean dry and intact. He does have some dependent penile bruising. There is a little bit of redundant anal tissue but no active bleeding, some of this could be small hemorrhoidal tissue but he is certainly not tender and there is no bleeding. Digital rectal exam done and there is absolutely no stool in the vault. Did a sweep of the rectal vault and I cannot feel any masses. Withdrawal of the gloved finger reveals absolutely no stool and there is absolutely no visible blood. Thus, Hemoccult was not sent is a was no stool. Documenting provider has reviewed patient's vital signs: yes Course Course ED Course: Patient and I discussed that he still needs to watch for further bleeding. If there is further bleeding, would recommend re-evaluation. I do not think any labs or further workup is necessary at this time. Reviewed with him that he really maybe does need to consider colonoscopy. He certainly can talk to his surgeon or his primary provider further about this. There is nothing further for me to do with this time but I have stressed to him if he has further bleeding rectally, does need re-evaluation. Vital Signs Vital signs: Initial Vital Signs Temperature 98.1 F 12/19/23 22:27 Temperature Source Temporal Artery Scan 12/19/23 22:27 Pulse Rate 58 L 12/19/23 22:27 Pulse Rhythm Regular 12/19/23 22:27 Respiratory Rate 20 12/19/23 22:27 Blood Pressure 151/102 H 12/19/23 22:27 Blood Pressure Mean 118 H 12/19/23 22:27 Blood Pressure Position Sitting 12/19/23 22:27 Pulse Oximetry 98 12/19/23 22:27 Oxygen Delivery Method Room Air 12/19/23 22:27 Vital Signs Temperature 98.1 F 12/19/23 22:27 Pulse Rate 58 L 12/19/23 22:27 Respiratory Rate 20 12/19/23 22:27 Blood Pressure 151/102 H 12/19/23 22:27 Pulse Oximetry 98 12/19/23 22:27 Oxygen Delivery Method Room Air 12/19/23 22:27 Temperature 98.1 F 12/19/23 22:27 Pulse Rate 58 L 12/19/23 22:27 Respiratory Rate 20 12/19/23 22:27 Blood Pressure 151/102 H 12/19/23 22:27 Pulse Oximetry 98 12/19/23 22:27 Oxygen Delivery Method Room Air 12/19/23 22:27 Discharge Plan Discharge Clinical Impression: Rectal bleeding, Chronic anticoagulation Patient Disposition: Home, Self-Care Condition: Stable Instructions: Rectal Bleeding (ED) Additional Instructions: If you have further rectal bleeding that is significant, please return to the ER. Otherwise, if your just noting small amounts like a spot or with wiping, need to follow up in clinic in talk to your primary care provider. You may ultimately need to get scheduled for a colonoscopy. Certainly with any significant rectal bleeding, you need to be re-evaluated in the ER. Activity Detail: Follow-up postoperative activity restrictions per your surgeon. Prescriptions: No Action epinephrine 0.3 mg/0.3 mL auto-injector 0.3 ml IM ONCE rivaroxaban 20 mg tablet 20 mg PO DAILY Hold Instructions: Resume on 12/18/23. restart The day after surgery Rx Instructions: WITH MEAL metoprolol succinate 25 mg tablet extended release 24 hr 25 mg PO DAILY hydrocodone-acetaminophen 5-325 mg Tablet 1 tab PO Q6H PRN (Reason: Pain) Qty: 10 0RF fluorouracil [Efudex] 5 % cream 1 applic topical .1DW Qty: 40 0RF Rx Instructions: Apply to affected skin one day per week. betamethasone valerate 0.1 % cream 0.1 applic topical .Bid Mon, Wed, Fri Qty: 45 0RF Follow Up/Referrals: Allan Roberts MD [Primary Care Provider] - Stand Alone Forms: [facility] Info Instructions
--- OUTSIDE RECORDS SUMMARY | 2023-12-19 23:04 | XMS_ITS | Clinical Summary ---
Author Organization [facility] Address [place], [place] [address] Care Team Providers Care Medical Associate Name Role Phone Allan Rhoades MD Primary Care Provider [phone] Allergies Active Allergy Reactions Criticality Noted Date [...] mouth once daily. 0 12/10/2018 Active vitamins A,C,E-ibxc-jrmpmz (ICaps AREDS) 7,160-113-100 dcce-gm-qxlw TbEC Take by mouth once daily. 0 [...] Description 11/18/2023 10:00 AM CDT Ancillary Procedure [facility] [address] [place] [address] 11/18/2023 Telephone [facility] [address] [place] [address] Dr Franches[place] [address] Agueda Rivas MD Results from Last 3 [...] 177.8 cm (5' 10) 06/19/2008 10:00 AM NECK SKEWER Body Mass Index - - Plan of [...] for age 65+ 01/31/2004 COVID-19 vaccine series (2022-24 season) 2023 07/14/2020, 06/23/2020 Influenza for age [...] CDT ECHOCARDIOGRAM CHRISTIAN RHOADES ? Accession#: ?? [id number] : ?1940 83 years Study Date: ?? 11/18/2023 10:07:28 AM Gender: M ?BP: ? 150/88 mmHg Height: 178.00 cm ?BSA: ?1.93 m? ? ? Weight: 75.00 kg ? Tech: ? MJJ ? Referring MD: AGUEDA RIVAS Site: ? [facility] Reading Location: MOBILE-OP Patient Location: Outpatient. Procedure: [...] . This study was interpreted by an [facility] accredited facility. CC: [facility] (med [facility]) [facility]. ??Final ?? Procedure Note Harshad Thomas MD - 11/18/2023 ECHOCARDIOGRAM CHRISTIAN RHOADES : 1940 83 years Study Date: 11/18/2023 10:07:28 AM Gender: M BP: 150/88 mmHg Height: 178.00 cm BSA: 1.93 m? ? ? Weight: 75.00 kg Tech: GARO Referring MD: AGUEDA RIVAS Site: [facility] Reading Location: MOBILE-OP Patient Location: [...] IAC accredited facility. CC: [facility] (med records) [facility]. Final Agueda Rivas MD ECHO ORD from Last 3 Months Advance Directives * Full Code (Latest Code Status on File) Date Activated Date Inactivated Comments 06/20/2008 10:28 AM 06/20/2008 4:53 PM Care Teams Medical Associate Relationship Specialty Start Date End Date Allan Rhoades MD PCP - General 06/02/08
--- OUTSIDE RECORDS SUMMARY | 2023-12-19 23:04 | XMS_ITS | Clinical Summary ---
Author Organization [facility] Address [address] [place] [address] Care Team Providers Care Coordinate Measuring Machine Programmer Name Role Phone William Samayoa MD Primary Care Provider + Social History Tobacco Use Types Packs/Day Years Used Date Smoking Tobacco: Never Assessed Sex and Gender Information Value Date Recorded Sex Assigned at Not on file Gender Identity Not on file Sexual Orientation Not on file Plan of Treatment Not on file Insurance Payer Benefit Plan / Group Subscriber ID Effective Dates Phone Address Type MEDICARE MEDICARE [id number] 2001-Prese nt ATTN CLAIMS [address] [place] [address] Medicare BCBS [place] [id number] 2017-P res ent [address] [address] [place] [address] Indemnity Care Teams Coordinate Measuring Machine Programmer Relationship Specialty Start Date End Date William Samayoa MD PCP - General 06/10/17
--- OUTSIDE RECORDS SUMMARY | 2023-12-19 23:04 | XMS_ITS | Referral Summary ---
Author Organization [facility] Address [address] [place] [address] Care Team Providers Care Manufacturing Scheduler Name Role Phone William Samayoa MD Primary Care Provider + Social History Tobacco Use Types Packs/Day Years Used Date Smoking Tobacco: Never Assessed Sex and Gender Information Value Date Recorded Sex Assigned at Not on file Gender Identity Not on file Sexual Orientation Not on file Plan of Treatment Not on file Care Teams Manufacturing Scheduler Relationship Specialty Start Date End Date William Samayoa MD PCP - General 06/10/17
[2023-12-19 23:10] VITALS: BP 148/92; PULSE 55; RESP 18
== END 2023-12-19 23:12 | disposition home or self-care (01) ==
PROVIDERS: Emergency Provider Family Medicine; PCP Family Medicine
DX: K62.5 Hemorrhage of anus and rectum (principal); Z79.01 Long term (current) use of anticoagulants
CPT/HCPCS: 99283

== ENCOUNTER 2023-12-20 07:29 | Observation (INO) | payer MEDICARE, BC, SELFPAY ==
[2023-12-20 07:42] VITALS: BP 171/103; PULSE 71; RESP 16; TEMP 36.6; O2SAT 97
--- OUTSIDE RECORDS SUMMARY | 2023-12-20 08:21 | XMS_ITS | Clinical Summary ---
Author Organization [facility] Address [place], [place] [address] Care Team Providers Care Draw Bench Operator Helper Name Role Phone Allan Rhoades MD Primary Care Provider [phone] Allergies Active Allergy Reactions Criticality Noted Date [...] mouth once daily. 0 12/10/2018 Active vitamins A,C,R-byrw-epfbvw (ICaps AREDS) 7,160-113-100 fafz-jk-wgnq TbEC Take by mouth once daily. 0 [...] Description 11/18/2023 10:00 AM CDT Ancillary Procedure [facility] [address] [place] [address] 11/18/2023 Telephone [facility] [address] [place] [address] Dr Franc[place] [address] Agueda Rivas MD Results from Last 3 [...] 177.8 cm (5' 10) 06/19/2008 10:00 AM CAT SWAMPER Body Mass Index - - Plan of [...] CDT ECHOCARDIOGRAM CHRISTIAN RHOADES ? Accession#: ?? [id number] : ?1940 83 years Study Date: ?? 11/18/2023 10:07:28 AM Gender: M ?BP: ? 150/88 mmHg Height: 178.00 cm ?BSA: ?1.93 m? ? ? Weight: 75.00 kg ? Tech: ? MJJ ? Referring MD: AGUEDA RIVAS Site: ? [facility] Reading Location: MOBILE-OP Patient Location: Outpatient. Procedure: [...] . This study was interpreted by an [facility] accredited facility. CC: [facility] (med [facility]) [facility]. ??Final ?? Procedure Note Harshad Thomas MD - 11/18/2023 ECHOCARDIOGRAM CHRISTIAN RHOADES : 1940 83 years Study Date: 11/18/2023 10:07:28 AM Gender: M BP: 150/88 mmHg Height: 178.00 cm BSA: 1.93 m? ? ? Weight: 75.00 kg Tech: GARO Referring MD: AGUEDA RIVAS Site: [facility] Reading Location: MOBILE-OP Patient Location: [...] IAC accredited facility. CC: [facility] (med records) [facility]. Final Agueda Rivas MD ECHO ORD from Last 3 Months Advance Directives * Full Code (Latest Code Status on File) Date Activated Date Inactivated Comments 06/20/2008 10:28 AM 06/20/2008 4:53 PM Care Teams Draw Bench Operator Helper Relationship Specialty Start Date End Date Allan Rhoades MD PCP - General 06/02/08
--- OUTSIDE RECORDS SUMMARY | 2023-12-20 08:21 | XMS_ITS | Clinical Summary ---
Author Organization [facility] Address [address] [place] [address] Care Team Providers Care Branch Logistics Supervisor Name Role Phone William Samayoa MD Primary [...] Effective Dates Phone Address Type MEDICARE MEDICARE [id number] 2001-Prese nt ATTN CLAIMS [address] [place] [address] Medicare BCBS BCBS OF [place] [id number] 2017-P res ent [address] [address] [place] [address] Indemnity Care Teams Branch Logistics Supervisor Relationship Specialty Start Date End Date William Samayoa MD PCP - General 06/10/17
--- OUTSIDE RECORDS SUMMARY | 2023-12-20 08:21 | XMS_ITS | Referral Summary ---
Author Organization [facility] Address [address] [place] [address] Care Team Providers Care Provider Service Representative Name Role Phone William Samayoa MD Primary Care Provider + Social History Tobacco Use Types Packs/Day Years Used Date Smoking Tobacco: Never Assessed Sex and Gender Information Value Date Recorded Sex Assigned at Not on file Gender Identity Not on file Sexual Orientation Not on file Plan of Treatment Not on file Care Teams Provider Service Representative Relationship Specialty Start Date End Date William Samayoa MD PCP - General 06/10/17
--- NOTE | 2023-12-20 08:24 | ED_ITS ---
HPI - General Adult General Chief complaint: GI Bleed Stated complaint: Rectal bleeding Time Seen by Provider: 12/20/23 07:58 Source: patient Mode of arrival: ambulatory Limitations: no limitations History of Present Illness HPI narrative: 83-year-old male presenting today concerned about bright red blood per rectum. Patient had 1 episode of this yesterday and came to the ER for evaluation. At that time his vaginal vault was empty, rectal exam was normal. He is instructed to go home on follow-up. He states that since then he has had at least 2 more episodes of bright red blood per rectum. He brings in pictures. It appears that there is a small bowel movement in the toilet with a small amount of blood present. He denies feeling lightheaded or dizzy. No chest pain or shortness of breath. Patient is postop day 3 status post an incarcerated left inguinal hernia repair. Postop course has otherwise been unremarkable. His pain is been well-controlled with minimal pain medications. He did stop his Xarelto prior to surgery, took 1 dose he believes either or Thursday, did not take 1 yesterday. Denies difficulty with urination. States that he did not have a bowel movement postoperatively until Thursday which was yesterday, states that he took a stool softener and did not have to strain when he had his bowel movement. Related Data Home Medications ?Medication ?Instructions ?Recorded ?Confirmed epinephrine 0.3 mg/0.3 mL 0.3 ml IM ONCE 12/13/21 12/20/23 injection, auto-injector rivaroxaban 20 mg tablet 20 mg PO DAILY 12/13/21 12/20/23 metoprolol succinate 25 mg 25 mg PO DAILY 11/04/22 12/20/23 tablet,extended release 24 hr Previous Rx's ?Medication ?Instructions ?Recorded fluorouracil 5 % topical cream 1 applic topical .1DW #40 grams 01/08/23 (Efudex) betamethasone valerate 0.1 % 0.1 applic topical .Bid Mon, Wed, 08/27/23 topical cream Fri #45 grams hydrocodone 5 mg-acetaminophen 325 1 tab PO Q6H PRN Pain #10 tabs 12/17/23 mg tablet Allergies Allergy/AdvReac Type Severity Reaction Status Date / Time venom-honey bee Allergy Unknown Unknown Verified 12/20/23 07:44 Review of Systems Status of ROS: Reports: 10 or more systems reviewed and unremarkable except as noted in History and below [facility] Medical History Gout ?M10.9 - Gout, unspecified (ICD-10) Retinal detachment ?H33.20 - Serous retinal detachment, unspecified eye (ICD-10) Gastroesophageal reflux disease ?K21.9 - Gastro-esophageal reflux disease without esophagitis (ICD-10) Diverticulitis ?K57.92 - Diverticulitis of intestine, part unspecified, without perforation or abscess without bleeding (ICD-10) Atrial fibrillation ?I48.91 - Unspecified atrial fibrillation (ICD-10) Surgical History 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 - Presence of right artificial hip joint (ICD-10) History of right cataract extraction ?Z98.41 - Cataract extraction status, right eye (ICD-10) History of left cataract extraction ?Z98.42 - Cataract extraction status, left eye (ICD-10) History of hernia repair ?Z98.890 - Other specified postprocedural states (ICD-10) ?Z87.19 - Personal history of other diseases of the digestive system (ICD-10) History of hemorrhoidectomy ?Z98.890 - Other specified postprocedural states (ICD-10) Family History Father Heart disease Other Diabetes Social History Narrative: Consumes alcohol occasionally Does not use illicit drugs Nonsmoker 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 Lives with his Smoking Status: Former smoker Do you use any of these nicotine containing products: None Second hand tobacco smoke exposure: No How often do you have a drink containing alcohol: 2-3 times a week How many standard drinks containing alcohol do you have on a typical day: 1 or 2 How often do you have six or more drinks on one occasion: Never AUDIT-C Alcohol total score: 3 Non-prescribed substance use: denies use Caffeine: Yes Little interest or pleasure in doing things: not at all Feeling down, depressed, or hopeless: not at all service: No Exam Narrative: Exam Narrative: Well-nourished well-developed patient in no acute distress. Alert and oriented. Answers questions appropriately. Mood and affect are appropriate. Thoughts are goal oriented and rational. No tangential or magical thinking noted. Patient speaks in full sentences without needing to catch his breath. HEENT: Normocephalic atraumatic. Extraocular muscles are intact. Conjunctivae are moist without any icterus noted, conjunctivae do not appear pale. Moist mucous membranes. Neck is soft . Cardiovascular: Irregularly irregular. Lungs: Clear to auscultation bilaterally no wheezes rhonchi or rales are appreciated. Patient takes deep breaths without any discomfort. Abdomen: Soft and nontender nondistended with normal bowel sounds. Extremities: Bilateral lower extremities are without edema. Skin: Well perfused. Const: Vital Signs, click to edit/add: Vital Signs - 24 hr 12/20/23 07:42 Temperature 97.9 F Pulse Rate [Pulse Oximeter] 71 Respiratory Rate 16 Blood Pressure [Ri ght Upper Arm] 171/103 H Pulse Oximetry 97 Oxygen Delivery Me thod Room Air Course Course ED Course: White cell count slightly elevated. He hematocrit hemoglobin within normal limits. His chemistries are unremarkable. Discussed patient with Dr. Guaman, who stated that there was no bowel in his hernia. This is likely ago when sentence rather than a sequela from his surgery. I do think that given the patient's age, anticoagulation status, and recurrent bleeding admission for observation is appropriate at this time. Discussed patie nt with Dr. Tillman who graciously accepts the patient for admission. Vital Signs Vital signs: Initial Vital Signs Temperature 97.9 F 12/20/23 07:42 Temperature Source Temporal Artery Scan 12/20/23 07:42 Pulse Rate 71 12/20/23 07:42 Respiratory Rate 16 12/20/23 07:42 Blood Pressure 171/103 H 12/20/23 07:42 Blood Pressure Mean 125 H 12/20/23 07:42 Blood Pressure Position Sitting 12/20/23 07:42 Pulse Oximetry 97 12/20/23 07:42 Oxygen Delivery Method Room Air 12/20/23 07:42 Vital Signs Temperature 97.9 F 12/20/23 07:42 Pulse Rate 71 12/20/23 07:42 Respiratory Rate 16 12/20/23 07:42 Blood Pressure 171/103 H 12/20/23 07:42 Pulse Oximetry 97 12/20/23 07:42 Oxygen Delivery Method Room Air 12/20/23 07:42 Temperature 97.9 F 12/20/23 07:42 Pulse Rate 71 12/20/23 07:42 Respiratory Rate 16 12/20/23 07:42 Blood Pressure 171/103 H 12/20/23 07:42 Pulse Oximetry 97 12/20/23 07:42 Oxygen Delivery Method Room Air 12/20/23 07:42 Medical Decision Making MDM Narrative Medical decision making narrative: 83-year-old male, on anticoagulation, presenting with GI bleed. Plan per above Lab Data Lab results reviewed: Yes I reviewed the patient's lab results Labs: Lab Results 12/20/23 Range/Units 08:30 WBC 16.19 H (4.50-11.00) K/uL RBC 4.53 (4.30-5.90) m/uL Hgb 15.4 (13.5-17.5) gm/dL Hct 46.1 (37.0-53.0) % MCV 102 H (80-100) fL MCH 34 (26-34) pg MCHC 33 (32-36) gm/dL RDW Coeff of Rahat 14.1 (11.5-15.5) % Plt Count 173 (140-440) K/uL Neut % (Auto) 90.5 H (42.0-72.0) % Lymph % (Auto) 3.1 L (20-44) % [place] % (Auto) 5.9 (0.0-11.0) % Eos % (Auto) 0.0 (0.0-7.0) % Baso % (Auto) 0.1 (0.0-3.0) % Neut # (Auto) 14.70 H (1.7-7.0) K/uL Lymph # (Auto) 0.50 L (0.90-2.90) K/uL [place] # (Auto) 1.00 H (0.00-0.90) K/UL Eos # (Auto) 0.00 (0.00-0.50) K/uL Baso # (Auto) 0.00 (0.00-0.30) K/uL Abs Immat Gran (auto) 0.10 (0.00-0.30) K/uL Imm/Tot Granulo (auto) 0.4 % Sodium 136 (135-149) mmol/L Potassium 4.8 (3.6-5.1) mmol/L Chloride 101 (96-114) mmol/L Carbon Dioxide 28 (20-32) mmol/L Anion Gap 7 (7-15) mEq/L BUN 27 (7-30) mg/dL Creatinine 1.1 (0.5-1.5) mg/dL Estimated GFR 66 ml/min Glucose 157 H (60-115) mg/dL Calcium 9.1 (8.4-10.6) mg/dL Discharge Plan Discharge Clinical Impression: Acute GI bleeding Patient Disposition: Admitted As Observation Condition: Stable Prescriptions: No Action epinephrine 0.3 mg/0.3 mL auto-injector 0.3 ml IM ONCE rivaroxaban 20 mg tablet 20 mg PO DAILY Hold Instructions: Resume on 12/18/23. restart The day after surgery Rx Instructions: WITH MEAL metoprolol succinate 25 mg tablet extended release 24 hr 25 mg PO DAILY hydrocodone-acetaminophen 5-325 mg Tablet 1 tab PO Q6H PRN (Reason: Pain) Qty: 10 0RF Hold Instructions: patient isn't needing currently fluorouracil [Efudex] 5 % cream 1 applic topical .1DW Qty: 40 0RF Rx Instructions: Apply to affected skin one day per week. betamethasone valerate 0.1 % cream 0.1 applic topical .Bid Mon, Wed, Fri Qty: 45 0RF Follow Up/Referrals: Allan Roberts MD [Primary Care Provider] -
[2023-12-20 08:38] LABS: Basophils Percent Auto 0.1 % (0.0-3.0); Hematocrit 46.1 % (37.0-53.0); Hemoglobin* 15.4 gm/dL (13.5-17.5); Immature Granulocytes Pct Auto 0.4 %; Lymphocytes Percent Auto 3.1 % (20-44); Mean Corpuscular HGB Conc 33 gm/dL (32-36); Mean Corpuscular Hemoglobin 34 pg (26-34); Mean Corpuscular Volume 102 fL (80-100); Monocytes Percent Auto 5.9 % (0.0-11.0); Neutrophils Percent Auto 90.5 % (42.0-72.0); Platelet Count* 173 K/uL (140-440); RDW Coefficient of Variation % 14.1 % (11.5-15.5); Red Blood Count 4.53 m/uL (4.30-5.90); White Blood Count* 16.19 K/uL (4.50-11.00)
[2023-12-20 08:42] LABS: Slide Review Reflex No
[2023-12-20 08:55] LABS: Chloride* 101 mmol/L (96-114); Potassium* 4.8 mmol/L (3.6-5.1); Sodium* 136 mmol/L (135-149)
[2023-12-20 08:57] LABS: Creatinine* 1.1 mg/dL (0.5-1.5); Estimated Glomerular Filt Rate 66 ml/min
[2023-12-20 08:58] LABS: Anion Gap 7 mEq/L (7-15); Blood Urea Nitrogen* 27 mg/dL (7-30); Calcium* 9.1 mg/dL (8.4-10.6); Carbon Dioxide* 28 mmol/L (20-32); Glucose* 157 mg/dL (60-115)
[2023-12-20 09:30] VITALS: BP 148/90; PULSE 64; RESP 18; O2SAT 98
[2023-12-20 10:13] VITALS: BP 156/105; PULSE 68; RESP 16; RESP 18; TEMP 36.6; O2SAT 90; O2SAT 97; BMI 22.1
[2023-12-20] MEDS: bisacodyL 5 MG TABLET DR 10 MG PO (12:28)
--- NOTE | 2023-12-20 12:56 | P.GSCN_ITS ---
History of Present Illness Consult details Date Seen: 12/20/23 Consult date: 12/20/23 Narrative: The patient is an 83-year-old male who underwent laparoscopic converted to open left inguinal hernia repair 3 days ago. He had been doing well postoperatively. He had not been taking prescription pain pills. He did take a stool softener and had a small bowel movement last evening. This was on postop day 2. After he has a bowel movement he felt a sensation to push and he passed blood into the toilet. He has a photo of this showing a bowel movement with red tinged water and blood on the toilet paper. He came into the emergency department and since he had only 1 episode and rectal exam did not show stool in the rectal vault, he was told to return if it continued. This morning he again thought he was going to have a bowel movement and sat on the toilet and he states he passed only blood. This happened twice. He then came back to be seen. He has had hemorrhoids in the past and was told at 1 point that he had diverticulitis, however he has not had a colonoscopy before. He has not recently had any episodes of bright red blood per rectum. He had held his anticoagulation 3 days prior to surgery. He took 1 dose on Thursday and had not taken any since. In the ER his hemoglobin was 15. His white blood cell count was found to be 16. He denies any abdominal pain. No issues urinating. He feels as though his stool is soft. He states he has not been straining. 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 - Presence of right artificial hip joint (ICD-10) History of right cataract extraction ?Z98.41 - Cataract extraction status, right eye (ICD-10) History of left cataract extraction ?Z98.42 - Cataract extraction status, left eye (ICD-10) History of hernia repair ?Z98.890 - Other specified postprocedural states (ICD-10) ?Z87.19 - Personal history of other diseases of the digestive system (ICD-10) History of hemorrhoidectomy ?Z98.890 - Other specified postprocedural states (ICD-10) Family History Father Heart disease Other Diabetes Social History Narrative: Consumes alcohol occasionally Does not use illicit drugs Nonsmoker 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 Lives with his What is your current living situation?: I presently have a place to live Problems where you live: no known problems Problems where you live details: none, pt has stair lift at home In the past 12 months, utilities in danger of being shut off: no In past 12 months, lack of transportation kept you from medical appts, meetings, work, or getting things needed for daily living: no In the past 12 mos, have been you worried that your food would run out before you had money to buy more?: never true In the past 12 mos, the food you bought just didn't last and you didn't have money to buy more?: never true Highest level of school completed/degree received: high school graduate Smoking Status: Former smoker Do you use any of these nicotine containing products: None Second hand tobacco smoke exposure: No How often do you have a drink containing alcohol: 2-3 times a week Alcohol type: beer How many standard drinks containing alcohol do you have on a typical day: 1 or 2 How often do you have six or more drinks on one occasion: Never AUDIT-C Alcohol total score: 3 Non-prescribed substance use: denies use Caffeine: Yes (1x large cup daily) How often does anyone, including family, friends and others, physically hurt you : never How often does anyone, including family, friends and others, insult or talk down to you: never How often does anyone, including family, friends and others, threaten you with harm: never How often does anyone, including family, friends and others, scream or curse at you: never Little interest or pleasure in doing things: not at all Feeling down, depressed, or hopeless: not at all service: Yes Meds Home Medications and Allergies Home Medications ?Medication ?Instructions ?Recorded ?Confirmed ?Type epinephrine 0.3 mg/0.3 mL 0.3 ml IM ONCE 12/13/21 12/20/23 History injection, auto-injector rivaroxaban 20 mg tablet 20 mg PO HS 12/13/21 12/20/23 History metoprolol succinate 25 mg 25 mg PO HS 11/04/22 12/20/23 History tablet,extended release 24 hr fluocinolone 0.01 % topical 1 applic topical .1-2X DAILY 12/20/23 12/20/23 History solution ketoconazole 2 % shampoo 1 applic topical .2-3X/WEEK 12/20/23 12/20/23 History Allergies Allergy/AdvReac Type Severity Reaction Status Date / Time venom-honey bee Allergy Unknown Unknown Verified 12/20/23 07:44 Exam Narrative: Exam Narrative: General appearance: Alert, cooperative, and in no distress Eyes: PERRLA, eye lids clear, and sclera white HENT Head: Normocephalic Ears: External ears normal Pulmonary: Breathing nonlabored on room air Cardiovascular Heart: Regular rate Extremities: warm and well perfused Gastrointestinal Abdominal: Incisions are clean and dry. No erythema. Minimal tenderness to the abdomen. Rectal: Skin tags noted on external exam Musculoskeletal: Extremities: Upper: Both upper extremities have normal joint range of motion and intact strength. Lower: Both lower extremities have normal joint range of motion and intact strength. Skin: Normal skin color, texture, and turgor. Neurologic: No focal deficits Psychiatric: Alert, oriented, cooperative, normal affect. Const: Vital Signs, click to edit/add: Vital Signs - 24 hr 12/20/23 07:42 12/20/23 09:30 12/20/23 10:13 Temperature 97.9 F 97.9 F Pulse Rate [Pulse Oximeter] 71 64 68 Respiratory Rate 16 18 16 Blood Pressure [Le ft Arm] 156/105 H Blood Pressure [Ri ght Upper Arm] 171/103 H 148/90 H Pulse Oximetry 97 98 97 Oxygen Delivery Me thod Room Air Room Air Room Air 12/20/23 10:13 Temperature Pulse Rate [Pulse Oximeter] Respiratory Rate 18 Blood Pressure [Le ft Arm] Blood Pressure [Ri ght Upper Arm] Pulse Oximetry 90 Oxygen Delivery Me thod Room Air Results Labs Labs: Abnormal lab results 12/20/23 Range/Units 08:30 WBC 16.19 H (4.50-11.00) K/uL MCV 102 H (80-100) fL Neut % (Auto) 90.5 H (42.0-72.0) % Lymph % (Auto) 3.1 L (20-44) % Neut # (Auto) 14.70 H (1.7-7.0) K/uL Lymph # (Auto) 0.50 L (0.90-2.90) K/uL [place] # (Auto) 1.00 H (0.00-0.90) K/UL Glucose 157 H (60-115) mg/dL Diabetes panel 12/20/23 Range/Units 08:30 Sodium 136 (135-149) mmol/L Potassium 4.8 (3.6-5.1) mmol/L Chloride 101 (96-114) mmol/L Carbon Dioxide 28 (20-32) mmol/L BUN 27 (7-30) mg/dL Creatinine 1.1 (0.5-1.5) mg/dL Glucose 157 H (60-115) mg/dL Calcium 9.1 (8.4-10.6) mg/dL Calcium panel 12/20/23 Range/Units 08:30 Calcium 9.1 (8.4-10.6) mg/dL Pituitary panel 12/20/23 Range/Units 08:30 Sodium 136 (135-149) mmol/L Potassium 4.8 (3.6-5.1) mmol/L Chloride 101 (96-114) mmol/L Carbon Dioxide 28 (20-32) mmol/L BUN 27 (7-30) mg/dL Creatinine 1.1 (0.5-1.5) mg/dL Glucose 157 H (60-115) mg/dL Calcium 9.1 (8.4-10.6) mg/dL Adrenal panel 12/20/23 Range/Units 08:30 Sodium 136 (135-149) mmol/L Potassium 4.8 (3.6-5.1) mmol/L Chloride 101 (96-114) mmol/L Carbon Dioxide 28 (20-32) mmol/L BUN 27 (7-30) mg/dL Creatinine 1.1 (0.5-1.5) mg/dL Glucose 157 H (60-115) mg/dL Calcium 9.1 (8.4-10.6) mg/dL All other labs normal. Progress Note:A&P Assessment and plan (1) Chronic anticoagulation: Status: Acute (2) Rectal bleeding: Status: Acute (3) S/P left inguinal hernia repair: Status: Acute Plan The patient is an 83-year-old male who is postop day 3 from laparoscopic converted to open recurrent inguinal hernia repair. He is on anticoagulation, however only took 1 dose and has presented with bright red blood per rectum. He is hemodynamically stable and hemoglobin on admission was 15. -differential diagnosis includes hemorrhoids, diverticular bleed, mass, or p ossibly even colonic ischemia given recent general anesthesia and possible hypoperfusion. This could also explain his elevated white blood cell count. He did not appear to have colon contained within his hernia, however certainly if there was colon that was manipulated during the surgery that sustained some sort of crush injury, this could also prevent with mucosal shunting and bleeding. -agree with bowel prep today and possible colonoscopy tomorrow if able. -continue to hold anticoagulation until after colonoscopy
[2023-12-20 15:00] VITALS: BP 166/108; PULSE 77; RESP 18; TEMP 36.8; O2SAT 96; O2SAT 97
--- NOTE | 2023-12-20 15:39 | P.IMHP_ITS ---
Hospitalist- H&P: [facility] History of Present Illness Date Seen: 12/20/23 Chief complaint: Rectal bleeding Narrative: Luis Armando Rhoades is a 83 year old male is an 83-year-old male with history of atrial fibrillation for which he takes Xarelto for chronic anticoagulation who presented for bright red blood per rectum. He does not have any history of rectal bleeding, but does have a history of hemorrhoids many years ago for which he had a procedure and has never had any more trouble with them and a history of 1 bout of diverticulitis several years ago that was treated with oral antibiotics as an outpatient. He has never had a colonoscopy. There is no family history of colon cancer. He stop taking Xarelto, which he has been on for many years, about a week ago in anticipation of elective left inguinal hernia repair by Dr. Guaman. This took place on December 16. After that he had minimal pain and did not take any of the prescribed pain medicine or zokc-bjw-fmmbviw pain medicine at home. Regardless, he developed constipation for which he took tfey-tjq-mweuhld stool softeners on Thursday. On Thursday (yesterday) he noticed a feeling of need to push again after having a bowel movement and when he did that, he had bright red blood per rectum. He denies any clots. He came to the emergency department yesterday evening and had a rectal exam which found no hemorrhoids or visible blood in the stool. He reported at that time that the blood in the stool had stopped. He was discharge d home with instructions to come back if things started up again. Overnight he had about 3 or 4 bowel movements which turned the water pink. He took pictures of these and came to the emergency department this morning. He denies any fevers or chills, but did have some sweats overnight. He denies dizziness or lightheadedness, chest pain, shortness of breath. He denies any abdominal cramping. He is agreeable to have colonoscopy. Review of Systems Status of ROS: Reports: 10 or more systems reviewed and unremarkable except as noted in History and below [facility] Medical History (Updated 12/20/23 @ 15:40 by Avis Tillman MD) Chronic anticoagulation ?Z79.01 - half-way (current) use of anticoagulants (ICD-10) Gout ?M10.9 - Gout, unspecified (ICD-10) Retinal detachment ?H33.20 - Serous retinal detachment, unspecified eye (ICD-10) Gastroesophageal reflux disease ?K21.9 - Gastro-esophageal reflux disease without esophagitis (ICD-10) Diverticulitis ?K57.92 - Diverticulitis of intestine, part unspecified, without perforation or abscess without bleeding (ICD-10) Atrial fibrillation ?I48.91 - Unspecified atrial fibrillation (ICD-10) Surgical History (Updated 12/20/23 @ 15:40 by Avis Tillman MD) S/P left inguinal hernia repair ?Z98.890 - Other specified postprocedural states (ICD-10) ?Z87.19 - Personal history of other diseases of the digestive system (ICD-10) 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 - Presence of right artificial hip joint (ICD-10) History of right cataract extraction ?Z98.41 - Cataract extraction status, right eye (ICD-10) History of left cataract extraction ?Z98.42 - Cataract extraction status, left eye (ICD-10) History of hernia repair ?Z98.890 - Other specified postprocedural states (ICD-10) ?Z87.19 - Personal history of other diseases of the digestive system (ICD-10) History of hemorrhoidectomy ?Z98.890 - Other specified postprocedural states (ICD-10) Family History Father Heart disease Other Diabetes Social History (Updated 12/20/23 @ 15:41 by Avis Tillman MD) Narrative: Consumes alcohol occasionally - drinks a few beers per week has only had 1 beer this week Does not use illicit drugs Nonsmoker 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 Lives with his What is your current living situation?: I presently have a place to live Problems where you live: no known problems Problems where you live details: none, pt has stair lift at home In the past 12 months, utilities in danger of being shut off: no In past 12 months, lack of transportation kept you from medical appts, meetings, work, or getting things needed for daily living: no In the past 12 mos, have been you worried that your food would run out before you had money to buy more?: never true In the past 12 mos, the food you bought just didn't last and you didn't have money to buy more?: never true Highest level of school completed/degree received: high school graduate Smoking Status: Former smoker Do you use any of these nicotine containing products: None Second hand tobacco smoke exposure: No How often do you have a drink containing alcohol: 2-3 times a week Alcohol type: beer How many standard drinks containing alcohol do you have on a typical day: 1 or 2 How often do you have six or more drinks on one occasion: Never AUDIT-C Alcohol total score: 3 Non-prescribed substance use: denies use Caffeine: Yes (1x large cup daily) How often does anyone, including family, friends and others, physically hurt you : never How often does anyone, including family, friends and others, insult or talk down to you: never How often does anyone, including family, friends and others, threaten you with harm: never How often does anyone, including family, friends and others, scream or curse at you: never Little interest or pleasure in doing things: not at all Feeling down, depressed, or hopeless: not at all service: Yes Meds Home Medications and Allergies Home Medications ?Medication ?Instructions ?Recorded ?Confirmed ?Type epinephrine 0.3 mg/0.3 mL 0.3 ml IM ONCE 12/13/21 12/20/23 History injection, auto-injector rivaroxaban 20 mg tablet 20 mg PO HS 12/13/21 12/20/23 History metoprolol succinate 25 mg 25 mg PO HS 11/04/22 12/20/23 History tablet,extended release 24 hr fluocinolone 0.01 % topical 1 applic topical .1-2X DAILY 12/20/23 12/20/23 History solution ketoconazole 2 % shampoo 1 applic topical .2-3X/WEEK 12/20/23 12/20/23 History Allergies Allergy/AdvReac Type Severity Reaction Status Date / Time venom-honey bee Allergy Unknown Unknown Verified 12/20/23 07:44 Exam Narrative: Exam Narrative: General: No acute distress. Awake alert oriented x3. HEENT: Normocephalic atraumatic, pupils equally round and reactive to light and accommodation. Oropharynx clear. Mucous membranes are moist. No cervical lymphadenopathy, thyromegaly or carotid bruits. No JVD. Cardiovascular: Regular rate and rhythm. No murmurs, gallops, or rubs. Chest: No increased work of breathing. Clear to auscultation bilaterally. No crackles or wheezes. Abdomen: He seemed recent surgical wounds are clean, dry, intact. Ecchymosis from recent surgery present. Bowel sounds present. Soft, nondistended, mildly tender with mild fullness over the left inguinal incision, no erythema, induration or wound dehiscence. No hepatosplenomegaly or masses. Extremities: No edema, no cyanosis or clubbing. Skin: No jaundice, no pallor, no rashes. Const: Vital Signs, click to edit/add: Vital Signs - 24 hr 12/20/23 07:42 12/20/23 09:30 12/20/23 10:13 Temperature 97.9 F 97.9 F Pulse Rate [Pulse Oximeter] 71 64 68 Respiratory Rate 16 18 16 Blood Pressure [Le ft Arm] 156/105 H Blood Pressure [Ri ght Upper Arm] 171/103 H 148/90 H Pulse Oximetry 97 98 97 Oxygen Delivery Me thod Room Air Room Air Room Air 12/20/23 10:13 Temperature Pulse Rate [Pulse Oximeter] Respiratory Rate 18 Blood Pressure [Le ft Arm] Blood Pressure [Ri ght Upper Arm] Pulse Oximetry 90 Oxygen Delivery Me thod Room Air Hospitalist - H&P: Result Labs Labs: Short CBC 12/20/23 Range/Units 08:30 WBC 16.19 H (4.50-11.00) K/uL Hgb 15.4 (13.5-17.5) gm/dL Hct 46.1 (37.0-53.0) % Plt Count 173 (140-440) K/uL [facility] 12/20/23 08:30 Sodium 136 Potassium 4.8 Chloride 101 Carbon Dioxide 28 BUN 27 Creatinine 1.1 Glucose 157 H Calcium 9.1 Assessment and Plan Assessment and plan (1) Acute GI bleeding: Status: Acute (2) S/P left inguinal hernia repair: Problem comment: Lap converted to open, recurrent, 12/17/2023. Status: Acute (3) Atrial fibrillation: Status: Chronic (4) Chronic anticoagulation: Status: Chronic Plan This is an 83-year-old male on chronic anticoagulation for atrial fibrillation who is status post a recent left inguinal hernia repair and developed acute onset of BRBPR after restarting his Xarelto (took one dose). He has never had a colonoscopy, or any h/o rectal bleeding, but does have a h/o 1 bout of diverticulitis several years ago that was treated with oral antibiotics as an outpatient. Hgb is unremarkable. Admit for observation, hold Xarelto, recheck Hgb tonight and in the morning. Prep for probable colonoscopy tomorrow. I appreciate Dr. Rosas's recommendations.
[2023-12-20] MEDS: polyethylene glycoL 238 GM BULK BOTTLE PO (16:09)
[2023-12-20 18:10] LABS: Hemoglobin* 15.2 gm/dL (13.5-17.5)
[2023-12-20 19:00] VITALS: BP 152/102; PULSE 75; RESP 18; TEMP 36.2; O2SAT 95
--- NOTE | 2023-12-20 19:24 | PC.NURSE ---
End of shift-- Pleasant and cooperative, alert and oriented patient was admitted to med-surg via wheelchair. VSS, though hypertensive, and pt is afebrile. SpO2 maintained >90% on RA. He c/o some mild abdominal pain this evening but declined intervention for it. 3x lap sites along abdomen and incision in left groin are ILEANA with skin glue and appear to be healing well. Pt currently completing a bowel prep for a colonoscopy in the morning. He was up independently in room and tolerated it well. Report to JACK Munoz.
[2023-12-20] MEDS: SODIUM CHLORIDE 0.9 % (FLUSH) 10 ML SYRINGE 5 ML IVF (20:35)
[2023-12-20] MEDS: METOPROLOL SUCCINATE (XL) 25 MG TAB PO (20:35)
[2023-12-20 23:00] VITALS: BP 145/104; PULSE 68; RESP 16; TEMP 36.6; O2SAT 95
[2023-12-21 02:41] VITALS: BP 147/99; PULSE 69; RESP 16; TEMP 36.4; O2SAT 97
--- NOTE | 2023-12-21 06:19 | PC.NURSE ---
End of shift note ([id number]): Patient pleasant, alert and oriented. Independent in room. Denied pain. Bowel movements are light brown-orange, watery consistency at this time. Patient educated to let staff check BMs before flushing. ?
[2023-12-21 06:31] LABS: Hemoglobin* 15.2 gm/dL (13.5-17.5)
[2023-12-21 07:00] VITALS: BP 141/96; PULSE 75; RESP 18; TEMP 36.4; O2SAT 96
[2023-12-21] MEDS: MAGNESIUM CITRATE 300 ML SOLUTION PO (08:12)
[2023-12-21] MEDS: SODIUM CHLORIDE 0.9 % (FLUSH) 10 ML SYRINGE 5 ML IVF ×2 (08:12→20:29)
--- NOTE | 2023-12-21 09:01 | NUTR.NU ---
RDN with nutrition screen related to wound. Patient admitted for rectal bleeding. Underwent laparoscopic repair of recurrent incarcerated left inguinal hernia on 12/17/2023. Weight has been stable recently. Diet is currently clear liquids. MST score is a 1 for poor appetite but not significant. No further assessment indicated at this time.
--- NOTE | 2023-12-21 09:25 | PM.GSPN ---
Subjective Subjective Date Seen: 12/21/23 Interval history: Luis Armando is doing well today. He has had no further bleeding with the bowel prep. Exam Narrative: Exam Narrative: General: No acute distress Abdomen: Soft. Nontender. Incisions are clean and dry Const: Vital Signs, click to edit/add: Vital Signs - 24 hr 12/20/23 09:30 12/20/23 10:13 12/20/23 10:13 Temperature 97.9 F Pulse Rate [Pulse Oximeter] 64 68 Respiratory Rate 18 16 18 Blood Pressure [Le ft Arm] 156/105 H Blood Pressure [Ri ght Upper Arm] 148/90 H Pulse Oximetry 98 97 90 Oxygen Delivery Me thod Room Air Room Air Room Air 12/20/23 15:00 12/20/23 15:00 12/20/23 15:00 Temperature 98.2 F Pulse Rate [Pulse Oximeter] 77 77 Respiratory Rate 18 18 18 Blood Pressure [Le ft Arm] 166/108 H Blood Pressure [Ri ght Upper Arm] Pulse Oximetry 97 96 Oxygen Delivery Me thod Room Air 12/20/23 19:00 12/20/23 23:00 12/20/23 23:00 Temperature 97.1 F L 97.9 F Pulse Rate [Pulse Oximeter] 75 68 Respiratory Rate 18 16 16 Blood Pressure [Le ft Arm] 152/102 H 145/104 H Blood Pressure [Ri ght Upper Arm] Pulse Oximetry 95 95 95 Oxygen Delivery Me thod Room Air Room Air Room Air 12/21/23 02:41 12/21/23 07:00 12/21/23 07:00 Temperature 97.5 F L 97.5 F L Pulse Rate [Pulse Oximeter] 69 75 Respiratory Rate 16 18 Blood Pressure [Le ft Arm] 147/99 H 141/96 H Blood Pressure [Ri ght Upper Arm] Pulse Oximetry 97 96 Oxygen Delivery Me thod Room Air Room Air Room Air Labs/Imaging Labs Labs: Hemoglobin remains stable at 15. Progress Note:A&P Assessment and plan (1) S/P left inguinal hernia repair: Status: Acute (2) Chronic anticoagulation: Status: Chronic (3) Rectal bleeding: Status: Acute Plan The patient is an 83-year-old male who is now postop day 4 from laparoscopic converted to open recurrent incarcerated left inguinal hernia repair. He presented with bright red blood per rectum on postop day 2. This has now resolved without any resultant hemoglobin drop. He also had a mildly elevated white count. Colonoscopy is planned today. Pending these results he can be discharged home. His discharge orders from surgery have already been given to him. He is okay to restart the rivaroxaban as long as no lesions are identified on colonoscopy.
[2023-12-21 11:00] VITALS: BP 153/115; PULSE 74; RESP 16; O2SAT 98
--- NOTE | 2023-12-21 12:58 | W.ANESCHARGE ---
Anesthesia Charges Start Date/Time Anesthesia Start Date: 12/21/23 Anesthesia Start Time: 12:24 Stop Date/Time Anesthesia Stop Date: 12/21/23 Anesthesia Stop Time: 12:54 Summary Extremes of Age - Over 70 or under 1: [employer]ING [employer]
--- NOTE | 2023-12-21 13:08 | PM.IMPN1 ---
Progress Note: A&P Assessment and plan (1) Acute GI bleeding: Problem details: - likely secondary to ischemic colitis at the splenic flexure; possibly related to BP fluctuations intraoperatively Status: Acute (2) Ischemic colitis: Problem details: - Appreciate Dr. Guaman's recommendations - Start clears, advance diet as tolerated. Will likely be able to d/c home tomorrrow Status: Acute (3) S/P left inguinal hernia repair: Problem details: Lap converted to open, recurrent, 12/17/2023. Status: Acute (4) Atrial fibrillation: Problem details: - rate well controlled - restart xarelto tomorrow if hgb stable Status: Chronic (5) Chronic anticoagulation: Status: Chronic Subjective Time Seen by Provider: : Date Seen: 12/21/23 Interval history: No blood in stool overnight. Prep going well. No CP, dizziness or lightheadedness. Exam Narrative: Exam Narrative: General: No acute distress. Awake alert oriented. Cardiovascular: Regular rate and rhythm. No murmurs, gallops, or rubs. Chest: No increased work of breathing. Clear to auscultation bilaterally. No crackles or wheezes. Abdomen: He seemed recent surgical wounds are clean, dry, intact. Ecchymosis from recent surgery present, improving. Bowel sounds present. Soft, nondistended, nontender mild fullness over left inguinal incision improving, no erythema, induration or wound dehiscence. No hepatosplenomegaly or masses. Extremities: No edema, no cyanosis or clubbing. Const: Vital Signs, click to edit/add: Vital Signs - 24 hr 12/20/23 15:00 12/20/23 15:00 12/20/23 15:00 Temperature 98.2 F Pulse Rate [Pulse Oximeter] 77 77 Respiratory Rate 18 18 18 Blood Pressure [Le ft Arm] 166/108 H Pulse Oximetry 97 96 Oxygen Delivery Me thod Room Air 12/20/23 19:00 12/20/23 23:00 12/20/23 23:00 Temperature 97.1 F L 97.9 F Pulse Rate [Pulse Oximeter] 75 68 Respiratory Rate 18 16 16 Blood Pressure [Le ft Arm] 152/102 H 145/104 H Pulse Oximetry 95 95 95 Oxygen Delivery Me thod Room Air Room Air Room Air 12/21/23 02:41 12/21/23 07:00 12/21/23 07:00 Temperature 97.5 F L 97.5 F L Pulse Rate [Pulse Oximeter] 69 75 Respiratory Rate 16 18 Blood Pressure [Le ft Arm] 147/99 H 141/96 H Pulse Oximetry 97 96 Oxygen Delivery Me thod Room Air Room Air Room Air 12/21/23 11:00 Temperature Pulse Rate [Pulse Oximeter] 74 Respiratory Rate 16 Blood Pressure [Le ft Arm] 153/115 H Pulse Oximetry 98 Oxygen Delivery Me thod Room Air Labs Labs: Laboratory Results - last 24 hr 12/20/23 12/21/23 18:05 06:00 Hgb 15.2 15.2
--- NOTE | 2023-12-21 14:31 | PC.NURSE ---
End of shift note ([id number]): Pt A&Ox3, pleasant, and cooperative. Indep in room. Continent and using the bathroom frequently. BMs appeared liquid, scant, and brown-orange colored. VSS. LS COA.?Denies N/V/CP/SOB. Pt reported no pain throughout the shift. Lap sites CDI.?Colonoscopy was done this afternoon. Observing Pt overnight. ?
--- NOTE | 2023-12-21 14:37 | PM.EN ---
Chart Event Note Chart Event Note: Patient underwent diagnostic colonoscopy. Evidence of ischemic colitis to splenic flexure and descending colon. Biopsies obtained. No polyps or other concerning lesions identified. No evidence of active bleeding.
[2023-12-21 18:06] VITALS: BP 145/91; PULSE 69; RESP 20; TEMP 36.6; O2SAT 95
[2023-12-21 19:00] VITALS: BP 152/105; PULSE 73; RESP 20; TEMP 36.6; O2SAT 97
--- NOTE | 2023-12-21 19:06 | PC.NURSE ---
End of shift [id number] ? RN took over pt care at approximately 1500. Pt alert, oriented, cooperative. Up independently in room. Tolerating RA and transition from clear liquid diet to regular diet per MD order. Pt denies pain, SOB, N/V. Reports to RN that he feels ?a lot better than before?. Pt appears to be resting comfortably in bed at end of shift with call light within reach. ?
[2023-12-21] MEDS: METOPROLOL SUCCINATE (XL) 25 MG TAB PO (20:29)
[2023-12-21 23:00] VITALS: BP 116/81; PULSE 72; RESP 20; TEMP 36.6; O2SAT 95
[2023-12-22 03:00] VITALS: BP 140/106; PULSE 68; RESP 20; TEMP 36.4; O2SAT 97
--- NOTE | 2023-12-22 05:04 | PC.NURSE ---
Shift note: Pt had 1 brownish color BM tonight but no blood noted. No fever or abdominal pain recorded. Alert and oriented, independent in room. Bp was high at the start of the shift but responded well with the scheduled Metoprolol.
[2023-12-22 07:00] VITALS: RESP 18; O2SAT 99
[2023-12-22 07:37] VITALS: BP 122/80; PULSE 64; RESP 16; TEMP 36.3; O2SAT 99
[2023-12-22 07:45] LABS: Hemoglobin* 16.4 gm/dL (13.5-17.5)
--- NOTE | 2023-12-22 09:49 | P.DS_ITS ---
DS: Providers Provider Time Seen by Provider: 07:51 Date Seen: 12/22/23 Date of admission: 12/20/23 10:02 Primary care physician: Allan Roberts MD Admitting Clinician: Avis Tillman MD Attending Physician on discharge: Avis Tillman MD Date of Discharge: 12/22/23 DS: Diagnosis Discharge Diagnosis (1) Acute GI bleeding: Status: Acute Problem details: - likely secondary to ischemic colitis at the splenic flexure (2) Ischemic colitis: Status: Acute Problem details: - possibly related to BP fluctuations intraoperatively (12/16) - Hgb stable at 16.4, tolerating general diet, no further blood in stool. Restart Xarelto, discharge home, f/u with PCP and surgery (3) S/P left inguinal hernia repair: Status: Acute Problem details: Lap converted to open, recurrent, 12/17/2023. (4) Atrial fibrillation: Status: Chronic Problem details: - rate well controlled - restart xarelto (5) Chronic anticoagulation: Status: Chronic DS: Summary Hospital Course Hospital Course: Per H&P: Luis Armando Rhoades is a 83 year old male is an 83-year-old male with history of atrial fibrillation for which he takes Xarelto for chronic anticoagulation who presented for bright red blood per rectum. He does not have any history of rectal bleeding, but does have a history of hemorrhoids many years ago for which he had a procedure and has never had any more trouble with them and a history of 1 bout of diverticulitis several years ago that was treated with oral antibiotics as an outpatient. He has never had a colonoscopy. There is no family history of colon cancer. He stop taking Xarelto, which he has been on for many years, about a week ago in anticipation of elective left inguinal hernia repair by Dr. Guaman. This took place on December 16. After that he had minimal pain and did not take any of the prescribed pain medicine or dmwe-bjf-xkckmbv pain medicine at home. Regardless, he developed constipation for which he took hvnu-yhp-ogywhlx stool softeners on Thursday. On Thursday (yesterday) he noticed a feeling of need to push again after having a bowel movement and when he did that, he had bright red blood per rectum. He denies any clots. He came to the emergency department yesterday evening and had a rectal exam which found no hemorrhoids or visible blood in the stool. He reported at that time that the blood in the stool had stopped. He was discharged home with instructions to come back if things started up again. Overnight he had about 3 or 4 bowel movements which turned the water pink. He took pictures of these and came to the emergency department this morning. He denies any fevers or chills, but did have some sweats overnight. He denies dizziness or lightheadedness, chest pain, shortness of breath. He denies any abdominal cramping. Patient was prepped for colonoscopy and was still not clear by morning for which he was given 2 doses of mag citrate. There was no blood in the stool overnight. Bowel movements were clear by the afternoon and he underwent colonoscopy which found ischemic bowel at the splenic flexure. Patient was advanced back to a regular diet, which he tolerated. He had a BM that was soft, brown, no blood. Hgb stable again overnight. D/c'd home. Time Spent with Patient Time attestation: Total time spent providing and/or coordinating discharge services: Exam Narrative: Exam Narrative: General: No acute distress. Awake alert oriented. Cardiovascular: Regular rate and rhythm. No murmurs, gallops, or rubs. Chest: No increased work of breathing. Clear to auscultation bilaterally. No crackles or wheezes. Abdomen: Bowel sounds present, nontender to palpation. Const: Vital Signs, click to edit/add: Vital Signs - 24 hr 12/21/23 11:00 12/21/23 18:06 12/21/23 18:06 Temperature 97.8 F Pulse Rate [Pulse Oximeter] 74 69 Respiratory Rate 16 20 20 Blood Pressure [Le ft Arm] 153/115 H 145/91 H Pulse Oximetry 98 95 95 Oxygen Delivery Me thod Room Air Room Air Room Air 12/21/23 19:00 12/21/23 23:00 12/21/23 23:00 Temperature 98 F Pulse Rate [Pulse Oximeter] 73 Respiratory Rate 20 20 20 Blood Pressure [Le ft Arm] 152/105 H Pulse Oximetry 97 95 Oxygen Delivery Me thod Room Air Room Air 12/21/23 23:00 12/22/23 03:00 12/22/23 07:37 Temperature 97.8 F 97.6 F 97.4 F L Pulse Rate [Pulse Oximeter] 72 68 64 Respiratory Rate 20 20 16 Blood Pressure [Le ft Arm] 116/81 140/106 H 122/80 Pulse Oximetry 95 97 99 Oxygen Delivery Me thod Room Air Room Air Room Air DS: Data Data Completed and Pending Completed studies during hospitalization: Colonoscopy by Dr. Gillette 12/21/23 Labs on day of discharge: Labs from last 24 hours 12/22/23 07:39 Hgb 16.4 Discharge Plan Discharge Disposition: Home, Self-Care Date of Admission: 12/20/23 10:02 Attending Provider on Discharge: Avis Tillman Primary Care Provider: Allan Roberts Condition: Stable Anticipated Discharge Date/Time: 12/22/23 09:53 Discharge Medications: Continued epinephrine 0.3 mg/0.3 mL auto-injector 0.3 ml IM ONCE rivaroxaban 20 mg tablet 20 mg PO HS Hold Instructions: Resume on 12/18/23. restart The day after surgery Rx Instructions: WITH MEAL metoprolol succinate 25 mg tablet extended release 24 hr 25 mg PO HS hydrocodone-acetaminophen 5-325 mg Tablet 1 tab PO Q6H PRN (Reason: Pain) Qty: 10 0RF Hold Instructions: patient isn't needing currently fluocinolone 0.01 % solution 1 applic TOPICAL .1-2X DAILY Patient Comments: APPLY SOLUTION TOPICALLY TO SCALP WHEN ITCHY 1-2 TIMES DAILY ketoconazole 2 % shampoo 1 applic TOPICAL .2-3X/WEEK Patient Comments: WASH SCALP TOPICALLY, SHAMPOO 2-3 TIMES A WEEK ALTERNATING WITH REGULAR SHAMPOO fluorouracil [Efudex] 5 % cream 1 applic topical .1DW Qty: 40 0RF Hold Instructions: FROM 12/2022 Rx Instructions: Apply to affected skin one day per week. betamethasone valerate 0.1 % cream 0.1 applic topical .Bid Mon, Wed, Fri Qty: 45 0RF Discharge Orders: Discharge Order (Routine); Ordered 12/22/23 Ordered By: Avis Tillman Patient Education: Gastrointestinal Bleeding (DC) Additional Instructions: Dec 28 Activity Level: Other Activity Detail: follow previous instructions from recent surgery Discharge Diet: Regular Follow Up Appointments: Allan Roberts MD [Primary Care Provider] - 12/29/23 10:45 am ([facility] [place] for follow-up.) [facility] Info Instructions
--- NOTE | 2023-12-22 12:00 | PC.NURSE ---
dc'd IV rt AC intact. Reviewed dc instructions and copies sent with pt. Belongings reviewed and sent with pt.
== END 2023-12-22 12:01 | disposition home or self-care (01) ==
LOC: ED 09:08 → MEDSURG 10:03
PROVIDERS: Admitting Provider Family Medicine; Emergency Provider Family Medicine; PCP Family Medicine; Visit Provider Family Medicine
DX: K92.2 Gastrointestinal hemorrhage, unspecified (principal); K55.9 Vascular disorder of intestine, unspecified; I48.91 Unspecified atrial fibrillation; I10 Essential (primary) hypertension; D72.829 Elevated white blood cell count, unspecified; Z79.01 Long term (current) use of anticoagulants; M10.9 Gout, unspecified; K21.9 Gastro-esophageal reflux disease without esophagitis; Z87.19 Personal history of other diseases of the digestive system; Z87.891 Personal history of nicotine dependence; Z98.890 Other specified postprocedural states
CPT/HCPCS: 00811; 36415; 45380; 80048; 85018; 85025; 88305; 99100; 99284; 99285; A9270; G0378; J2704

== ENCOUNTER 2024-06-27 14:31 | Emergency (ER) | payer MEDICARE, BC, SELFPAY ==
--- OUTSIDE RECORDS SUMMARY | 2024-06-27 14:34 | XMS_ITS | Clinical Summary ---
Author Organization [employer] [facility] Address [place], [place] [address] Care Team Providers Care Surgical Coordinator Name Role Phone Allan Rhoades MD Primary Care Provider [phone] Allergies Active Allergy Reactions Criticality Noted Date Comments Hymenoptera Allergenic Extract High 06/19/2008 bee sting -passed out /now has EPI pen Unlisted Allergen (Include Detail In Comments) 06/19/2008 seasonal Medications EPIPEN 0.3 MG/0.3 ML (1:1,000) IM INJECTOR as directed Active multivitamin (MVI) tablet Take 1 tablet by mouth once daily. 0 9 Active vitamins A,C,A-iick-qdeeta (ICaps AREDS) 7,160-113-100 mgsg-ww-eour TbEC Take by mouth once daily. 0 2 Active metoprolol succinate (TOPROL XL) 25 mg Sustained-Release tabletIndications :Chronic atrial fibrillation (HC) Take 1 Tablet (25 mg) by mouth once daily. 90 Tablet 3 4 Active rivaroxaban (Xarelto) 20 mg tabletIndications :Atrial fibrillation, unspecified type (HC) Take 1 Tablet (20 mg) by mouth once daily with evening meal. 90 Tablet 3 4 Active Encounters Date Type Department Care Team Description 04/06/2024 Telephone [facility] [address] [place] [address] Garth Macdonald MD Medication Management (xarelto & metoprolol) from Last 3 Months Social History Tobacco Use Types Packs/Day Years Used Date Smoking Tobacco: Never Smokeless Tobacco: Never Tobacco Cessation:Counseling Given: Yes Alcohol Use Standard Drinks/Week Comments Yes 0 (1 standard drink = 0.6 oz pur e alcohol) Financial Resource Strain Answer Date R ecorded Difficulty of Paying Living Expenses Not on file 05/18/2021 Difficulty of Paying Living Expenses Not on file 05/18/2021 Sex and Gender Information Value Date Recorded Sex Assigned at Not on file Legal Sex Male 6:16 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 Gender Identity Not on file Sexual Orientation Not on file Obstetrics History Last Filed Vital Signs Vital Sign Reading Time Taken Comments Blood Pressure 118/72 12/13/2021 1:52 PM CDT Pulse 72 12/13/2021 1:52 PM CDT Temperature 35.9 C (96.6 F) 06/20/2008 1:05 PM BOARD HANDLER Respiratory Rate 14 12/13/2021 1:52 PM CDT Oxygen Saturation 99% 11/22/2019 9:45 AM CDT Inhaled Oxygen Concentration - - Weight 76.7 kg (169 lb) 12/13/2021 1:52 PM CDT Height 177.8 cm (5' 10) 06/19/2008 10:00 AM BOARD HANDLER Body Mass Index - - Plan of Treatment Health Maintenance Due Date Last Done Comments Tdap 1950 Depression screening for age 12+ 1951 BMI (ht and wt on same day) for age 18+ 1957 Pneumococcal series for age 50+ (1 of 2 - PCV) 1958 Tetanus booster 1959 Zoster (shingles) series for age 50+ (1 of 2) 1989 Medicare Wellness for age 65+ 01/31/2004 RSV vaccine for adults or pr egnancy (1 - 1-dose 75+ series) 2014 COVID-19 vaccine series ( season) 2024 07/14/2020, 06/23/2020 Influenza for age 65+ 01/17/2024 Insurance MEDICARE PART B HB ONLY MEDICARE PB ONLY [facility] Advance Directives * Full Code (Latest Code Status on File) Date Activated Date Inactivated Comments 06/20/2008 10:28 AM 06/20/2008 4:53 PM Care Teams Surgical Coordinator Relationship Specialty Start Date End Date Allan Rhoades MD PCP - General 06/02/08
--- OUTSIDE RECORDS SUMMARY | 2024-06-27 14:34 | XMS_ITS | Clinical Summary ---
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 MEDICARE SUPPLEMENT Care Teams Deputy Prosecuting Attorney Relationship Specialty Start Date End Date William Samayoa MD PCP - General 06/10/17
--- OUTSIDE RECORDS SUMMARY | 2024-06-27 14:34 | XMS_ITS | Data Portability ---
Author Organization [facility], Main Office Address [address] [address] Assessment Encounter Date Assessment Date Assessment LastModified by Organization Details LastModified Time 06/14/2018 06/14/2018 1. Basal carcino ma biopsy-proven left preauricular region here for Mohs surgery. We reviewed Mohs surgery and the risks benefits of surgery in detail including pain, discomfort, bruising, length of the scar based on the width of the defect. The 98% efficacy. The 2% chance of an infection. The risk of bruising. The risk of bleeding. Verbal and written informed consent were obtained. There is anesthetized 1% lidocaine with epinephrine. Cleansed with Betadine and alcohol. [id number] Stage I: There is curette debulked in 1-1/2 mm margins were taken circumferentially to the deep dermis. Revealing basal cell carcinoma with infiltrative features at 2:00 near 3:00 in [place] at 5 6 and possibly 4:00. Moderate inflammation from 6:00 to 12:00 through 9:00. Stage II. No debulking performed. 2 mm margins were taken circumferentially. And somewhat of an elliptical shape. Stage II revealed no residual carcinoma. Total sections 4 total stages 2.Final defect at greatest diameter was 2.5 cm. Redundancies removed superior and inferior carried down to the subcutis undermined anterior 1 cm. Undermined towards the tragus 2-3 mm. Closed with 4-0 Vicryl and 4-0 nylon for final closure length of 5.5 cm with an intermediate closure. Wound care dressing applied, wound care instructions given including not to shave the sutures stitches out. Follow-up in 1 week in [place]. [email or web address] Not available 07/20/2018 00:20:55 Plan of Treatment Reminders Order Date Submit Date Provider Last Modified By Organization Details Last Modified Time Details Appointments None record ed. Lab None record ed. Referral None record ed. Procedures None record ed. Surgeries None record ed. Imaging None record ed. Medication Orders None record ed. Patient TargetsNo targets recorded. Patient InstructionsNo instructions recorded. Reason for Referral None Reported. 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 Medical Equipment None Reported. Allergies No known drug allergies Medications Name Sig Start Date Stop Date Status Note LastModified by Organization Details LastModified Time fluorouracil 5 % topical cream active Not Available Not Available Not Available ketorolac 0.5 % eye drops 2018 completed Not Available Not Available Not Available prednisolone acetate 1 % eye drops,suspensi on 2018 completed Not Available Not Available Not Available metoprolol succinate ER 25 mg tablet,extende d release 24 hr active Not Available Not Available Not Available oxycodone 5 mg tablet 2018 completed Not Available Not Available Not Available moxifloxacin 0.5 % eye drops 2018 completed Not Available Not Available Not Available metoprolol tartrate 25 mg tablet 2018 completed Not Available Not Available Not Available Xarelto 20 mg tablet active Not Available Not Available Not Available Vitals None Recorded Social History Question Answer Notes LastModified by Organizat ion Details LastModified Time Tobacco Smoking Status Never Smoker Not Available [facility] 03/20/2020 03:34:37 What Is Your Level Of Alcohol Consumption? Occasional [id number] Information not available 03/20/2020 Animal Exposure? No Information not available 06/14/2018 What Was The Date Of Your Most Recent Tobacco Screening? 06/14/2018 [id number] Information not available 03/20/2020 Sun Exposure Frequent Information not available 06/14/2018 Do You Use Sunscreen Routinely? No [id number] Information not available 03/20/2020 Tanning Bed Exposure No Information not available 06/14/2018 Sex: Unknown Functional Status None recorded. Mental Status None recorded. Family History Relationship Description Onset Age of this Age Resolved Age Notes LastModified by Organization Details LastModified Time Brother Heart disease Not available 2018 09:53:37 Father Heart disease Not available 2018 09:53:37 Medical History Condition Response Diabetes N Bleeding Disorder N Squamous Cell Carcinoma N Arthritis N Blood Clot N AIDS/HIV N Tuberculosis N Cancer N Melanoma N Stroke N Thyroid Problems N Asthma N Pacemaker N Anemia N Basal Cell Carcinoma Y Skin Cancer Y Hepatitis N Liver Disease N Heart Disease Y Pulmonary Embolism N Hypertension N Seasonal Allergies N Kidney Disease N Past Encounters Encounter ID Performer Location Encounter Start Date Encounter Closed Date Diagnosis/Indication Diagnosis SNOMED-CT Code Diagnosis ICD10 Code Diagnosis Note [id number] Armando Quevedo MD Main Office [address] [address] 06/14/2018 09:42:28 06/14/2018 18:08:46 Basal cell carcinoma of face 812798952 C44.310 Health Concerns Section Related Observation LastModified by Organization Detai ls LastModified Time None Recorded Concern Status LastModified by Organization Details LastModified Time None Recorded Advance Directives Directive None Recorded Payers Encounter Date Sequence Insurance Name Policy Number Policy Burkett Covered Member ID Burkett Member ID Guarantor Name 06/14/2018 1 [facility] [id number] Luis Armando Rhoades [id number] Luis Armando Rhoades 06/14/2018 2 MEDICARE [place]: [employer] Luis Armando Rhoades [id number] Luis Armando Rhoades Notes Date Note Type Note Provider Name and Address Organization Details Recorded Time 06/14/2018 text/html 78-year-old male presents today for Mohs surgery of a biopsy-proven basal carcinoma on the left preauricular region. We identified easily today at the biopsy site he confirms it. The outside notes from [place] listed his left uatsdin. He and I both recall of the left preauricular. His past medical history is unchanged. Social history . Does not smoke. It is important to note that he is on Xarelto. Armando Quevedo MD [address], [place], [address], [facility] 07/20/2018 00:20:58
[2024-06-27 14:39] VITALS: BP 160/84; PULSE 57; RESP 16; TEMP 36.9; O2SAT 99; BMI 22.2
--- NOTE | 2024-06-27 16:16 | ED.GENADULT ---
HPI - General Adult General Time Seen by Provider: 16:10 Date Seen: 06/27/24 Chief complaint: Extremity Pain/Injury, Upper Stated complaint: Numbness in fingers Time Seen by Provider: 06/27/24 16:14 Source: patient Mode of arrival: ambulatory Limitations: no limitations History of Present Illness HPI narrative: 84-year-old male who presents today with arm pain in bruising and finger tingling. Patient notes that he noted bruising and swelling of his right arm after trying to get his chainsaw started about a week ago. Also notes over the last week or so that he gets intermittent tingling in the fingers of the hands bilaterally. He notices this mostly cold but also if he has had the hands resting in his chest when he is trying to sleep. He says it feels like it is all the fingers. He denies neck pain, chest pain, shortness of breath, no weakness. Related Data Home Medications ?Medication ?Instructions ?Recorded ?Confirmed rivaroxaban 20 mg tablet 20 mg PO HS 12/13/21 06/27/24 metoprolol succinate 25 mg 25 mg PO HS 11/04/22 06/27/24 tablet,extended release 24 hr fluocinolone 0.01 % topical 1 applic topical .1-2X DAILY PRN 12/31/23 01/29/24 solution ketoconazole 2 % shampoo 1 applic topical .2-3X/WEEK PRN 12/31/23 01/29/24 Previous Rx's ?Medication ?Instructions ?Recorded betamethasone valerate 0.1 % 0.1 applic topical .Bid Mon, Wed, 08/27/23 topical cream Fri #45 grams epinephrine 0.3 mg/0.3 mL 0.3 ml IM ONCE #2 ea 01/25/24 injection, auto-injector Allergies Allergy/AdvReac Type Severity Reaction Status Date / Time venom-honey bee Allergy Unknown Unknown Verified 01/29/24 12:43 [facility] Medical History Bee sting-induced anaphylaxis ?T63.441A - Toxic effect of venom of bees, accidental (unintentional), initial encounter (ICD-10) Chronic anticoagulation ?Z79.01 - assisted (current) use of anticoagulants (ICD-10) Gout ?M10.9 - Gout, unspecified (ICD-10) Retinal detachment ?H33.20 - Serous retinal detachment, unspecified eye (ICD-10) Gastroesophageal reflux disease ?K21.9 - Gastro-esophageal reflux disease without esophagitis (ICD-10) Diverticulitis ?K57.92 - Diverticulitis of intestine, part unspecified, without perforation or abscess without bleeding (ICD-10) Atrial fibrillation ?I48.91 - Unspecified atrial fibrillation (ICD-10) Surgical History S/P left inguinal hernia repair ?Z98.890 - Other specified postprocedural states (ICD-10) ?Z87.19 - Personal history of other diseases of the digestive system (ICD-10) 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 - Presence of right artificial hip joint (ICD-10) History of right cataract extraction ?Z98.41 - Cataract extraction status, right eye (ICD-10) History of left cataract extraction ?Z98.42 - Cataract extraction status, left eye (ICD-10) History of hernia repair ?Z98.890 - Other specified postprocedural states (ICD-10) ?Z87.19 - Personal history of other diseases of the digestive system (ICD-10) History of hemorrhoidectomy ?Z98.890 - Other specified postprocedural states (ICD-10) Family History Father Heart disease Other Diabetes Social History Narrative: Consumes alcohol occasionally - drinks a few beers per week has only had 1 beer this week Does not use illicit drugs Nonsmoker 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 Lives with his What is your current living situation?: I presently have a place to live Problems where you live: no known problems Problems where you live details: none, pt has stair lift at home In the past 12 months, utilities in danger of being shut off: no In past 12 months, lack of transportation kept you from medical appts, meetings, work, or getting things needed for daily living: no In the past 12 mos, have been you worried that your food would run out before you had money to buy more?: never true In the past 12 mos, the food you bought just didn't last and you didn't have money to buy more?: never true Highest level of school completed/degree received: high school graduate Smoking Status: Former smoker Do you use any of these nicotine containing products: None Second hand tobacco smoke exposure: No How often do you have a drink containing alcohol: 2-3 times a week Alcohol type: beer How many standard drinks containing alcohol do you have on a typical day: 1 or 2 How often do you have six or more drinks on one occasion: Never AUDIT-C Alcohol total score: 3 Non-prescribed substance use: denies use Caffeine: Yes (1x large cup daily) How often does anyone, including family, friends and others, physically hurt you: never How often does anyone, including family, friends and others, insult or talk down to you: never How often does anyone, including family, friends and others, threaten you with harm: never How often does anyone, including family, friends and others, scream or curse at you: never service: Yes Exam Narrative: Exam Narrative: General: well nourished , NAD Head: Atraumatic and normocephalic ENT: External ears and external nose are normal Eyes: Conjunctiva clear, pupils are equal reactive, external ocular motions are intact Neck: Full spontaneous range of motion of the neck Lungs: No respiratory distress Musculoskeletal: Extensive bruising of the right upper arm with bruising extending to the right forearm. Swelling in these areas as well. Radial and ulnar pulses are intact. Normal capillary refill bilaterally. Biceps tendon is intact, however part of the biceps seems to be punched proximally and is firm, no tenderness in this area. Neurologic: No decreased sensation in the hands or fingers Skin: No rashes Psych: Mood and affect are appropriate Const: Vital Signs, click to edit/add: Vital Signs - 24 hr 06/27/24 14:39 Temperature 98.5 F Pulse Rate [Pulse Oximeter] 57 L Respiratory Rate 16 Blood Pressure [Le ft Upper Arm] 160/84 H Pulse Oximetry 99 Oxygen Delivery Me thod Room Air Course Course ED Course: Reviewed prior cardiology note from January 27 when patient was seen for follow-up of atrial fibrillation chronic anticoagulation, that time atrial fibrillation was well controlled on metoprolol and patient was continued on Xarelto as well. Patient presents today with 2 concerns: 1. Right arm bruising in the setting of activity trying to start his chainsaw, he says he was pulling with his left arm. On exam he has extensive bruising of the right upper arm and what looks like dependent ecchymosis into the right forearm. Additionally, the biceps seems bunched proximally on the right side although the biceps tendons intact. Suspect partial biceps rupture with hemorrhage exacerbated by anticoagulation. We discussed care of this, is injury occurred about a week ago, would not recommend splinting or immobilization at this time. We discussed the bridge insert gradually improve, and the contour of the upper arm may remain asymmetric when compared to the left arm, he may notice little bit of weakness since arms well but would not be a candidate for surgical repair, physical therapy may be helpful in the future. 2. Bilateral finger tingling. This seems to be mostly temperature dependent or positional. As the symptom is intermittent, bilateral in all the fingers, with no neck pain, chest pain, or other symptoms, acute CVA, cervical stenosis, or atypical angina are unlikely. Consider mild dehydration and poor circulation, carpal tunnel syndrome also possible although negative provocative testing and patient reports it is in all the fingers. We discussed hydration and keeping the hands warm, consider splinting or further evaluation if symptoms persist. Vital Signs Vital signs: Initial Vital Signs Temperature 98.5 F 06/27/24 14:39 Temperature Source Temporal Artery Scan 06/27/24 14:39 Pulse Rate 57 L 06/27/24 14:39 Respiratory Rate 16 06/27/24 14:39 Blood Pressure 160/84 H 06/27/24 14:39 Blood Pressure Mean 109 H 06/27/24 14:39 Blood Pressure Position Sitting 06/27/24 14:39 Pulse Oximetry 99 06/27/24 14:39 Oxygen Delivery Method Room Air 06/27/24 14:39 Vital Signs Temperature 98.5 F 06/27/24 14:39 Pulse Rate 57 L 06/27/24 14:39 Respiratory Rate 16 06/27/24 14:39 Blood Pressure 160/84 H 06/27/24 14:39 Pulse Oximetry 99 06/27/24 14:39 Oxygen Delivery Method Room Air 06/27/24 14:39 Temperature 98.5 F 06/27/24 14:39 Pulse Rate 57 L 06/27/24 14:39 Respiratory Rate 16 06/27/24 14:39 Blood Pressure 160/84 H 06/27/24 14:39 Pulse Oximetry 99 06/27/24 14:39 Oxygen Delivery Method Room Air 06/27/24 14:39 Discharge Plan Discharge Clinical Impression: Chronic anticoagulation, Tear of right biceps muscle, Paresthesia of hand, bilateral Patient Disposition: Home, Self-Care Instructions: Muscle Strain (DC), Tendon Rupture (ED), Safe Use of Anticoagulants (ED) Additional Instructions: The bruising of the right arm will improve although you will probably have a lump of the upper right arm after this is better. You may noticed but of weakness. Talk to your regular doctor about starting physical therapy. The tingling in your fingers is likely due to poor circulation, possibly made worse with cold weather or dehydration. Make sure you stay well hydrated. This may also be from carpal tunnel syndrome in you could follow-up with your regular doctor for this. Activity Level: No Restrictions Prescriptions: No Action rivaroxaban 20 mg tablet 20 mg PO HS Rx Instructions: WITH MEAL metoprolol succinate 25 mg tablet extended release 24 hr 25 mg PO HS fluocinolone 0.01 % solution 1 applic TOPICAL .1-2X DAILY PRN Patient Comments: APPLY SOLUTION TOPICALLY TO SCALP WHEN ITCHY 1-2 TIMES DAILY ketoconazole 2 % shampoo 1 applic TOPICAL .2-3X/WEEK PRN Patient Comments: WASH SCALP TOPICALLY, SHAMPOO 2-3 TIMES A WEEK ALTERNATING WITH REGULAR SHAMPOO betamethasone valerate 0.1 % cream 0.1 applic topical .Bid Mon, Wed, Fri Qty: 45 0RF epinephrine 0.3 mg/0.3 mL auto-injector 0.3 ml IM ONCE Qty: 2 2RF Follow Up/Referrals: Allan Roberts MD [Primary Care Provider] - Stand Alone Forms: Late [employer] [facility] Info Instructions
--- OUTSIDE RECORDS SUMMARY | 2024-06-27 16:36 | XMS_ITS | Clinical Summary ---
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 MEDICARE SUPPLEMENT Care Teams Marketing Information Manager Relationship Specialty Start Date End Date William Samayoa MD PCP - General 06/10/17
--- OUTSIDE RECORDS SUMMARY | 2024-06-27 16:36 | XMS_ITS | Clinical Summary ---
Author Organization [facility] [place], [place] [address] Care Team Providers Care Horticultural Technical Officer Name Role Phone Allan Rhoades MD Primary Care Provider [phone] Allergies Active Allergy Reactions Criticality Noted Date Comments Hymenoptera Allergenic Extract High 06/19/2008 bee sting -passed out /now has EPI pen Unlisted Allergen (Include Detail In Comments) 06/19/2008 seasonal Medications EPIPEN 0.3 MG/0.3 ML (1:1,000) IM INJECTOR as directed Active multivitamin (MVI) tablet Take 1 tablet by mouth once daily. 0 9 Active vitamins A,C,R-ukbq-uvnyvf (ICaps AREDS) 7,160-113-100 bcfq-il-tbey TbEC Take by mouth once daily. 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 Gender Identity Not on file Sexual Orientation Not on file Obstetrics History Last Filed Vital Signs Vital Sign Reading Time Taken Comments Blood Pressure 118/72 12/13/2021 1:52 PM CDT Pulse 72 12/13/2021 1:52 PM CDT Temperature 35.9 C (96.6 F) 06/20/2008 1:05 PM MANAGER FORENSIC Respiratory Rate 14 12/13/2021 1:52 PM CDT Oxygen Saturation 99% 11/22/2019 9:45 AM CDT Inhaled Oxygen Concentration - - Weight 76.7 kg (169 lb) 12/13/2021 1:52 PM CDT Height 177.8 cm (5' 10) 06/19/2008 10:00 AM MANAGER FORENSIC Body Mass Index - - Plan of [...] PART B HB ONLY MEDICARE PB ONLY [facility] Advance Directives * Full Code (Latest Code Status on File) Date Activated Date Inactivated Comments 06/20/2008 10:28 AM 06/20/2008 4:53 PM Care Teams Horticultural Technical Officer Relationship Specialty Start Date End Date Allan Rhoades MD PCP - General 06/02/08
== END 2024-06-27 16:47 | disposition home or self-care (01) ==
PROVIDERS: Emergency Provider Family Medicine; PCP Family Medicine
DX: S46.211A Strain of muscle, fascia and tendon of other parts of biceps, right arm, initial encounter (principal); R20.2 Paresthesia of skin; Z79.01 Long term (current) use of anticoagulants
CPT/HCPCS: 99282; 99283; 99284

== ENCOUNTER 2024-11-28 13:46 | Outpatient (CLI) | payer MEDICARE, BC, SELFPAY | END 2024-11-28 13:47 | disposition home or self-care (01) | LOC: RAD 13:48 | PROVIDERS: PCP Family Medicine; Visit Provider Internal Medicine | DX: I48.91 Unspecified atrial fibrillation (principal); I35.1 Nonrheumatic aortic (valve) insufficiency; I07.1 Rheumatic tricuspid insufficiency; I34.0 Nonrheumatic mitral (valve) insufficiency | CPT/HCPCS: 93306 ==

== ENCOUNTER 2025-01-24 12:23 | Outpatient (CLI) | payer MEDICARE, BC, SELFPAY ==
--- NOTE | 2025-01-24 13:00 | CRLHL7_ITS ---
For Patients: As a result of the Century Cures Act, medical imaging exams and procedure reports are released immediately into your electronic medical record. You may view this report before your referring provider. If you have questions, please contact your health care provider. INDICATION: Squamous cell carcinoma of right forehead. TECHNIQUE: Neck CT was performed after the administration of intravenous contrast. IV contrast: 74 mL Isovue 370. COMPARISON: : None. FINDINGS: A 1 cm solid mass within the right temporal skin/subcutaneous tissues likely representing the patient`s known squamous cell carcinoma. An additional 5 mm solid nodular lesion in the right temporal subcutaneous tissues posterior to this lesion (series 2 image 6) that may represent a metastatic deposit. A prominent 8 mm right periparotid lymph node. No additional pathologically enlarged lymph nodes in the neck. The oral cavity, nasopharynx, hypopharynx, and laryngeal structures are unremarkable. Bilateral palatine tonsilliths. The parotid, submandibular, and thyroid glands are unremarkable. Moderate burden of calcified plaque in the carotid arteries predominantly on the left. Intra-ocular lens replacements bilaterally with changes related to right scleral buckling. The visualized paranasal sinuses are clear. The visualized intracranial structures are grossly within normal limits. No acute or aggressive osseous abnormality. The visualized lung apices are unremarkable. IMPRESSION: 1. A 1 cm mass in the right temporal skin/subcutaneous tissues likely representing the patient`s known squamous cell carcinoma. An adjacent 5 mm nodular focus posterior to this lesion in the right temporal subcutaneous tissue that may represent a metastatic deposit. 2. A prominent 8 mm right periparotid lymph node that may represent metastases. 3. No additional pathologically enlarged lymph nodes in the neck. Please note that all CT scans at this facility use dose modulation, iterative reconstruction, and/or weight-based dosing when appropriate to reduce radiation dose to as low as reasonably achievable. Dictated by Genaro Hernandez MD @ 01/25/2025 1:31:25 PM (Electronically Signed)
[2025-01-24 13:11] LABS: Creatinine* 1.2 mg/dL (0.5-1.5); Estimated Glomerular Filt Rate 59 ml/min
== END 2025-01-24 12:24 | disposition home or self-care (01) ==
LOC: CT 12:25
PROVIDERS: PCP Family Medicine; Visit Provider Nurse Practitioner
DX: C44.390 Other specified malignant neoplasm of skin of unspecified parts of face (principal); R59.0 Localized enlarged lymph nodes; I51.7 Cardiomegaly
CPT/HCPCS: 36415; 70491; 82565; Q9967

== ENCOUNTER 2025-01-24 12:27 | Outpatient (CLI) | payer MEDICARE, BC, SELFPAY ==
--- NOTE | 2025-01-24 13:30 | CRLHL7_ITS ---
For Patients: As a result of the Century Cures Act, medical imaging exams and procedure reports are released immediately into your electronic medical record. You may view this report before your referring provider. If you have questions, please contact your health care provider. INDICATION: Squamous cell carcinoma of the face. Staging TECHNIQUE: CT chest, abdomen and pelvis acquired with 74 mL Isovue 370 IV contrast. COMPARISON: 12/20/[address], 05/03/[address] FINDINGS: CHEST: Cardiovascular structures: Heart is enlarged, particularly the atria. Thoracic aorta and main pulmonary artery are normal in caliber. Mediastinum and harvey: Upper limits normal pretracheal node measuring 10 mm on image 28 series 2. Lungs and pleura: Lungs and pleural spaces are clear. No suspicious nodules, infiltrates, or effusions. Chest wall and axilla: No mass or adenopathy. Bones: No suspicious bone lesions. Unremarkable for age. ABDOMEN AND PELVIS: Liver: Unremarkable. Gallbladder and bile ducts: Unremarkable. Pancreas: Unremarkable. Spleen: Unremarkable. Adrenal glands: Left adrenal nodule stable since 2018 consistent with a benign adenoma. Kidneys: Incidental right renal cyst. GI tract: Sigmoid diverticulosis. Vascular structures: Unremarkable. Lymph nodes: Unremarkable. Miscellaneous: Unremarkable. No free air or significant free fluid. Pelvic Organs: Unremarkable. Bones: Right hip arthroplasty. IMPRESSION: 1. Upper limits normal pretracheal lymph node measuring 10 mm. 2. Cardiomegaly. Please note that all CT scans at this facility use dose modulation, iterative reconstruction, and/or weight-based dosing when appropriate to reduce radiation dose to as low as reasonably achievable. Dictated by Ruben Rodriguez MD @ 01/25/2025 9:21:18 AM (Electronically Signed)
== END 2025-01-24 12:28 | disposition home or self-care (01) ==
PROVIDERS: PCP Family Medicine; Visit Provider Internal Medicine Hematology & Oncology
DX: C44.92 Squamous cell carcinoma of skin, unspecified (principal); E27.9 Disorder of adrenal gland, unspecified; I51.7 Cardiomegaly; R59.0 Localized enlarged lymph nodes
CPT/HCPCS: 71260; 74177

== ENCOUNTER 2025-02-03 11:06 | Outpatient (CLI) | payer MEDICARE, BC, SELFPAY ==
--- NOTE | 2025-02-03 11:15 | CRLHL7_ITS ---
For Patients: As a result of the Century Cures Act, medical imaging exams and procedure reports are released immediately into your electronic medical record. You may view this report before your referring provider. If you have questions, please contact your health care provider. ULTRASOUND-GUIDED RIGHT CERVICAL SOLID NODULE BIOPSY CLINICAL HISTORY: Squamous cell carcinoma. Evaluate for metastatic disease. COMPARISON STUDIES: CT 01/24/2025 TECHNIQUE: Real-time ultrasound with image documentation was used for targeting the right cervical lesion. Core biopsy specimens were obtained using an automated gun with an 18-gauge biopsy needle. CONSENT and TIME OUT: The procedure, risks, and alternatives were explained to the patient and a consent was signed. [place] Protocol was followed including pre-procedure verification that relevant information/documentation was available, reviewed and properly matched to the patient; consent accurate and complete; and equipment and supplies available. Time Out was conducted just prior to starting procedure to verify the four required elements: patient identity, correct side/site marked (if applicable), procedure, relevant images/results properly labeled and displayed (if applicable). PROCEDURE: The patient was positioned supine on the ultrasound table. The right side of the neck was prepped with ChloraPrep. 5 cc of 1 percent lidocaine used for local anesthesia. Core samples were obtained. The specimens were placed in 10% formalin and sent to the pathology department. Pressure was held on the biopsy site until all bleeding subsided. The skin incision was closed with Steri-Strips. Post-biopsy instructions were reviewed with the patient, and a written copy was given to him. LATERALITY: Right upper neck adjacent to the parotid gland LESION: Solid hypoechoic nodule corresponding to the CT which measures 1 cm. SUSPICION FOR MALIGNANCY: High NUMBER OF SAMPLES: 5 IMPRESSION: Ultrasound-guided right upper cervical solid nodule adjacent to the parotid gland. Dictated by Allan Cha MD @ 02/03/2025 12:22:02 PM (Electronically Signed)
== END 2025-02-03 11:07 | disposition home or self-care (01) ==
LOC: US 11:08
PROVIDERS: PCP Family Medicine; Visit Provider Nurse Practitioner
DX: C44.329 Squamous cell carcinoma of skin of other parts of face (principal)
CPT/HCPCS: 38505; 76942; A4649